=== PATIENT | female | born 1970 | race African-American/Black ===

== ENCOUNTER 2016-06-09 11:21 | Emergency (ER) ==
[2016-06-09 11:53] VITALS: BP 132/79
--- NOTE | 2016-06-09 12:58 | PROVIDER DOCUMENTATION ---
HPI-General Adult <Aline Kaufman - Last Filed: 06/09/16 13:04> - General Source: patient - History of Present Illness -Gen Adult Nature of Presenting Problems: Presents to er with cc of insect bite to right breast x 1 week that started draining yesterday. PT also complains of gout to entire LLE and bialteral hands. Denies n,v,f,recent injuries. Location of Pain/Injury: reports: other (right breast) Quality of Pain: reports: aching Severity: reports: moderate Onset/Duration: reports: 1 week ago Timing: reports: still present Context/Activities at Onset: reports: none Similar Symptoms Previously?: No Recently seen or treated by another doctor?: No <Kali Henderson - Last Filed: 06/09/16 13:39> - General Chief Complaint: Insect Bite/Sting Stated Complaint: GOUT/POSS ABSCESS Time Seen by Provider: 06/09/16 12:50 Allergies/Adverse Reactions: Patient Allergies Allergy/AdvReac Type Severity Reaction Status Date / Time No Known Allergies Allergy Verified 12/19/15 10:38 Home Medications: Home Medication List Medication Instructions Recorded Confirmed Last Taken Type Allopurinol [Zyloprim] 100 mg PO DAILY #0 tablet 10/30/15 12/19/15 12/12/15 11: 00 Rx Pantoprazole [Protonix] 40 mg PO DAILY@0700 #30 tablet 10/30/15 12/19/15 11:00 Rx Alprazolam [Xanax] 0.25 mg PO Q8H PRN PRN #30 tablet 11/01/15 12/19/15 12/12/15 11:00 Rx Venlafaxine E.r. [Effexor Xr] 75 mg PO QAM #30 capsule 11/01/15 12/19/15 12:30 Rx Amoxicillin 500 mg PO TID #30 capsule 12/19/15 Unknown Rx Ibuprofen 800 mg PO TID #30 tablet 12/19/15 Unknown Rx Metoprolol [Lopressor] 50 mg PO DAILY 12/19/15 12/19/15 12/18/15 12:30 History Cephalexin [Keflex] 500 mg PO BID #14 capsule 06/09/16 Unknown Rx Naproxen 375 mg PO BID #30 tablet 06/09/16 Unknown Rx Sulfamethoxazole/Trimethoprim 1 each PO BID #14 tablet 06/09/16 Unknown Rx [Bactrim Ds Tablet] Review of Systems - Adult - REVIEW OF SYSTEMS - ADULT Constitutional: denies: chills, fever, fatique Eyes: reports: no symptoms reported Ears, Nose, Mouth & Throat: reports: no symptoms reported Cardiovascular: denies: chest pain, irregular heart rate, orthopnea, syncope Respiratory: reports: no symptoms reported Gastrointestinal: denies: abdominal pain, diarrhea, nausea, vomiting Genitourinary: reports: no symptoms reported Musculoskeletal: reports: see HPI, other (gout). denies: frequent leg cramps, joint pain, joint swelling Integumentary: reports: skin sores/ulcer (right breast). denies: hives, hair loss, mole changes, nail changes Neurological: reports: no symptoms reported Psychiatric: reports: no symptoms reported Endocrine: reports: no symptoms reported Hematologic/Lymphatic: reports: no symptoms reported Allergic/Immunologic: reports: no symptoms reported All Other Systems: Reviewed and Negative <Kali Henderson - Last Filed: 06/09/16 13:39> Past History - Adult - PAST MEDICAL HISTORY-ADULT Review of Records: reports: Nursing Assessment Review, Medications Reviewed Respiratory: reports: asthma, COPD Gastrointestinal: reports: GERD Musculoskeletal: reports: other (gout) Psychiatric: reports: anxiety Other Conditions: reports: MRSA, other (fluid retention) - PRIOR SURGERIES/PROCEDURES Surgical/Procedure History: reports: BTL - IMMUNIZATION STATUS Childhood Immunizations: UTD Flu Vaccine: See Nurse Assessment - SOCIAL HISTORY Smoking: cigarettes, less than 1 pack/day Provider spent 3-5 mins advising pt. on dangers of tobacco.: Discussed manners to quit use, and f/u contacts for add'l counseling. <Aline Kaufman - Last Filed: 06/09/16 13:04> - PAST MEDICAL HISTORY-ADULT Review of Records: reports: Nursing Assessment Review, Medications Reviewed Major Childhood Illnesses: reports: denies history Cardiovascular: reports: HTN Musculoskeletal: reports: other (gout) - PRIOR SURGERIES/PROCEDURES Surgical/Procedure History: reports: BTL - IMMUNIZATION STATUS Childhood Immunizations: See Nurse Assessment Flu Vaccine: See Nurse Assessment - SOCIAL HISTORY Smoking: cigarettes, less than 1 pack/day Provider spent 3-5 mins advising pt. on dangers of tobacco.: Discussed manners to quit use, and f/u contacts for add'l counseling. Substance Use: none/never <Kali Henderson - Last Filed: 06/09/16 13:39> Physical Exam-General - PHYSICAL EXAM-ADULT Initial Vital Signs Reviewed: Yes - CONSTITUTIONAL General Appearance: appears well, alert, no apparent distress - EYES Eyes: PERRL/EOMI - HEAD, EARS, NOSE, MOUTH & THROAT HENMT: moist mucous membranes, normal ENT inspection, TMs normal, pharynx normal - NECK Neck: non-tender, full range of motion, supple, normal inspection - RESPIRATORY Respiratory: chest non-tender, lungs clear, normal breath sounds, no pleuratic chest pain, no respiratory distress, no accessory muscle use - CARDIOVASCULAR Cardiovascular: normal peripheral pulses, regular rate, rhythm, no edema, no gallop, no JVD - CHEST (BREASTS) Chest/Breast: other (right breast 3 cm draining abscess) - GASTROINTESTINAL (ABDOMEN) Abdominal Exam: normal bowel sounds, non tender, soft, no organomegaly, no pulsatile mass - MUSCULOSKELETAL Back Exam: normal inspection, no CVA tenderness, no vertebral tenderness Extremity: normal range of motion, non-tender, normal gait, normal inspection, no pedal edema, no calf tenderness, normal capillary refill, pelvis stable. negative: calf tenderness, deformity, erythema, inflammation, joint effusion, pulse deficit, pedal edema, swelling, tenderness - SKIN Integumentary: normal color, normal turgor, warm/dry - PSYCHIATRIC Psych/Mental Status: normal mood/affect, normal thought content, normal thought process, oriented x 3 <Kali Henderson - Last Filed: 06/09/16 13:39> Progress - PLAN OF CARE/RESULTS Progress/Plan/Lab Results: Orders Category Date Time Status Wound Care DIRECTED Care 06/09/16 13:08 Active ABSCESS CULTURE INC GRAM STAIN [RM] Stat Lab 06/09/16 13:08 Uncollected Ketorolac [Toradol] Med 06/09/16 13:07 Discontinued 60 mg IM NOW ONE Vital Signs - 24 hr 06/09/16 11:52 Temperature 98.3 F Pulse Rate 95 H Respiratory 20 Rate Blood Pressure 132/79 O2 Sat by Pulse 100 Oximetry <Kali Henderson - Last Filed: 06/09/16 13:39> Departure - Departure Time of Disposition Order: 13:04 Certified Medical Emergency: Emergent <Aline Kaufman - Last Filed: 06/09/16 13:04> <Kali Henderson - Last Filed: 06/09/16 13:39> - Departure DIAGNOSIS: Abscess Joint pain Qualifiers: Joint pain location: unspecified Qualified Code(s): M25.50 - Pain in unspecified joint Disposition: HOME 01 Condition: Stable Additional Instructions: Keep wound covered and clean. Take medications as directed. Ice or heat joints as needed for pain. ED Follow Up Instructions: You have been treated by a care provider in the Emergency Department. These instructions are being provided to you so you can have an understanding of how to care for yourself upon discharge. Upon discharge from the Emergency Department, you are responsible for making arrangements for follow-up care by a physician of your choice. Take all prescribed medications as directed. Return to the Emergency Department immediately for any new or worsening symptoms. You may call the Physician Referral phone number at [phone] to obtain a list of Physicians who are taking new patients. Prescriptions: Sulfamethoxazole/Trimethoprim [Bactrim Ds Tablet] 1 each PO BID #14 tablet Cephalexin [Keflex] 500 mg PO BID #14 capsule Naproxen 375 mg PO BID #30 tablet Referrals: [Primary Care Provider] - Instructions: Abscess, Joint Pain Attestation - Scribe Verification/Attestation Scribe:: Kali Henderson Acting as Scribe for:: Aline Kaufman Scribe documention review:: This chart was documented by a scribe and accurately reflects the service the provider performed and the decisions made by the provider. <Kali Henderson - Last Filed: 06/09/16 13:39> Physician Attestation
[2016-06-09] MEDS ORDERED: TORADOL IM ONE (13:07)
== END 2016-06-09 14:16 | disposition home or self-care (01) ==
LOC: ED 11:21
DX: N61.1 Abscess of the breast and nipple (principal); M25.50 Pain in unspecified joint; J44.9 Chronic obstructive pulmonary disease, unspecified; K21.9 Gastro-esophageal reflux disease without esophagitis; F41.9 Anxiety disorder, unspecified; I10 Essential (primary) hypertension; Z86.14 Personal history of Methicillin resistant Staphylococcus aureus infection; F17.210 Nicotine dependence, cigarettes, uncomplicated; Z71.6 Tobacco abuse counseling; Z79.899 Other long term (current) drug therapy
CPT/HCPCS: 87070; 87077; J1885

== ENCOUNTER 2016-09-12 10:10 | Inpatient (IN) ==
[2016-09-12] MEDS ORDERED: DILAUDID IV ONE ×2 (10:30→12:12)
[2016-09-12] MEDS ORDERED: NS 1,000 ML IV ONE (10:32)
[2016-09-12] MEDS ORDERED: ROCEPHIN 1 GM/NS 1 GM/50 ML IVPB IV ONE (10:35)
--- NOTE | 2016-09-12 12:55 | Diag Imaging Result Doc PS360 ---
EXAM: FACIAL BONES W/O CONTRAST HISTORY: recheck TECHNIQUE: COMPARISON: 09/10/2016 FINDINGS: There continues to be soft tissue swelling primarily in the right side of the face. This extends from the right orbit along the right side of the nose inferiorly adjacent to the mandible. This is most prominent at the base of the nose with an area measuring just under 2 cm. This is more pronounced than on the prior exam. No well-defined fluid collection. No sinus opacification and no air-fluid levels. I believe there are multiple small right maxilla and mandibular caries. IMPRESSION: Persistent right facial cellulitis focally more prominent at the base of the nose, but no well-defined fluid collection. Electronically signed by Tomas Hewitt 09/12/2016 12:53 PM
[2016-09-12 13:15] LABS: MANUAL DIFF NEEDED? NO
[2016-09-12 13:19] LABS: BASO% 0.5 % (0.0-0.8); EOS# 0.11 X1000 (0.0-0.7); EOS% 0.8 % (0.0-10.0); HEMATOCRIT 38.8 % (37.0-47.0); HEMOGLOBIN 12.8 g/dL (12.0-16.0); IMM GRAN# 0.05 X1000 (0.0-0.04); IMM GRAN% 0.4 % (0.0-0.5); LYMPH# 2.77 X1000 (1.2-3.4); LYMPH% 21.1 % (20.5-51.1); MCH 32.3 PG (27-31); MONO# 1.16 X1000 (0.11-0.59); MONO% 8.8 % (1.7-9.3); MPV 11.2 FL (7.4-10.4); NEUT% 68.4 % (42.2-75.2); PLT 300 X1000 (130-400); RBC 3.96 XMIL (4.2-5.4)
[2016-09-12 13:35] LABS: AGAP 13; ALBUMIN 4.1 g/dL (3.5-5.0); ALKALINE PHOSPHATASE 129 U/L (32-104); BUN 8 mg/dL (8-22); CALCIUM 9.2 mg/dL (8.8-10.2); CHLORIDE 97 mmol/L (98-107); COSMO 272; GOT 14 U/L (10-30); GPT 10 U/L (10-36); SODIUM 137 mmol/L (136-145); TCO2 27 mmol/L (25-35); TOTAL BILIRUBIN 0.65 mg/dL (0.20-1.00); TOTAL PROTEIN 8.4 g/dL (6.3-8.3)
--- NOTE | 2016-09-12 14:03 | PROVIDER DOCUMENTATION ---
This chart was entered by Sheridan Chilel Scribe, acting as scribe for Marcelle Zimmer MD. [facility]-EENT General - General Chief Complaint: Return/Recheck Stated Complaint: recheck Time Seen by Provider: 09/12/16 10:17 Source: patient Allergies/Adverse Reactions: Patient Allergies Allergy/AdvReac Type Severity Reaction Status Date / Time No Known Allergies Allergy Verified 09/12/16 10:51 Home Medications: Home Medication List Medication Instructions Recorded Confirmed Last Taken Type Allopurinol [Zyloprim] 100 mg PO DAILY #0 tablet 10/30/15 09/12/16 2 Weeks Ago Rx Pantoprazole [Protonix] 40 mg PO DAILY@0700 #30 tablet 10/30/15 09/12/16 2 Weeks Ago Rx Alprazolam [Xanax] 0.25 mg PO Q8H PRN PRN #30 tablet 11/01/15 09/12/16 3 Days Ago Rx Venlafaxine E.r. [Effexor Xr] 75 mg PO QAM #30 capsule 11/01/15 09/12/16 1 Month Ago Rx Metoprolol [Lopressor] 50 mg PO DAILY 12/19/15 09/12/16 1 Day Ago History Clindamycin [Cleocin] 450 mg PO TID #63 capsule 09/10/16 09/12/16 09/12/16 Rx Hydrocodone/APAP 5 mg/325 mg 1 each PO Q6H PRN PRN #10 tablet 09/10/16 09/12/16 1 Day Ago Rx [[place]-5] Lisinopril [Lisinopril] 20 mg PO QAM 09/12/16 09/12/16 09/12/16 History Loratadine [Loratadine] 10 mg PO 09/12/16 09/12/16 History - History of Present Illness-EENT General Nature of Presenting Problem: Pt is a 45 year old female who came to the ED with a cc of her swelling from her abscess is worsening. Pt reports she came to the ED the other day for swelling and tooth ache and was diagnosed with three abscesses. Pt reports today her swelling has gotten worse and has made her right eye close. Pt reports her face is hard and very tender. Pt reports she is taking the antibiotic like she is prescribed to. EENT Location: reports: eye (R), nose, mouth, facial Quality of Pain: reports: sharp, tightness Onset/Duration: reports: 2 days ago Timing: reports: still present Prearrival Treatment: Initiated prescription meds Associated Symptoms: reports: facial pain/swelling, tooth pain Similar Symptoms Previously?: Yes Recently seen or treated by another doctor?: Yes - Eyes Eye Problem Symptoms: reports: eyelid swelling Apparent Injury?: No - Ears Ear Problem Symptoms: reports: none - Nose Nose Problem Symptoms: nosebleed - Throat/Dental Throat/Dental Problem Symptoms: reports: toothache, swelling of jaw/face Throat/Dental Problem Context: reports: other (abscess) Recently seen a dentist or have an appointment?: No Review of Systems - Adult - REVIEW OF SYSTEMS - ADULT Constitutional: denies: chills, fever Eyes: reports: decreased vision, other (eye swollen shut). denies: discharge, double vision Ears, Nose, Mouth & Throat: reports: nose pain, mouth/dental pain, mouth swelling. denies: ear pain, throat pain Cardiovascular: denies: chest pain, syncope Respiratory: reports: no symptoms reported Gastrointestinal: denies: diarrhea, nausea, vomiting Genitourinary: reports: no symptoms reported Musculoskeletal: reports: no symptoms reported Integumentary: reports: no symptoms reported Neurological: reports: no symptoms reported Psychiatric: reports: no symptoms reported Endocrine: reports: no symptoms reported Hematologic/Lymphatic: reports: no symptoms reported Allergic/Immunologic: reports: no symptoms reported All Other Systems: Reviewed and Negative Past History - Adult - PAST MEDICAL HISTORY-ADULT Review of Records: reports: Nursing Assessment Review Major Childhood Illnesses: reports: denies history Cardiovascular: reports: HTN Respiratory: reports: asthma, COPD Gastrointestinal: reports: GERD Obstetrical/Gynecological: reports: denies history Genitourinary: reports: denies history Musculoskeletal: reports: other (gout) Neurological: reports: denies history Psychiatric: reports: anxiety Endocrine/Immune: reports: denies history Other Conditions: reports: MRSA, other (fluid retention) - PRIOR SURGERIES/PROCEDURES Surgical/Procedure History: reports: BTL - IMMUNIZATION STATUS Childhood Immunizations: See Nurse Assessment Flu Vaccine: See Nurse Assessment - FAMILY HISTORY Family History: reviewed, not pertinent Physical Exam- EENT - Physical Exam EENT Initial Vital Signs Reviewed: Yes General Appearance: alert, mild distress Eye Exam: right eye: eyelid inflammation, vision changes, 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 ) Ear Exam: bilateral ear: auricle normal Nasal Exam: sinus tenderness Throat Exam: maxillary swelling, other (1st and 2nd molar tender; 1st canine chipped and tender) Neck: non-tender Respiratory: chest non-tender, lungs clear Cardiovascular: tachycardia Abdominal Exam: normal bowel sounds, non tender Back Exam: normal inspection Extremity: normal range of motion, non-tender Integumentary: normal color Neurologic: grossly normal Psych/Mental Status: normal mood/affect, normal thought content, normal thought process, oriented x 3 Progress - PLAN OF CARE/RESULTS Progress/Plan/Lab Results: Vital Signs - 8 hr 09/12/16 10:13 09/12/16 12:34 Temperature 99.1 F Pulse Rate 113 H 98 H Respiratory Rate 22 22 Blood Pressure 171/96 150/91 O2 Sat by Pulse Oximetry 98 99 Bedside Urine ED: Urine Bedside Start: 09/12/16 11:53 Freq: Status: Active Activity Type Activity Date Activity User E-Sign Co-Sign Detail Recorded Client Recorded Date Recorded By Document 09/12/16 11:53 [id number] 09/12/16 11:55 [id number] 09/12/16 11:53 Point of Care [Bedside Point of Care] -Lot # [id number] - Results Negative -Control Line Visible? Yes -Additional Comment EXPIRES 2018 Laboratory Results - last 24 hr 09/12/16 09/12/16 09/12/16 10:36 10:36 10:36 WBC 13.12 H RBC 3.96 L Hgb 12.8 Hct 38.8 MCV 98.0 MCH 32.3 H MCHC 33.0 RDW Std Deviation 12.6 Plt Count 300 MPV 11.2 H Immature Gran % (Auto) 0.4 Neut % (Auto) 68.4 Lymph % (Auto) 21.1 [place] % (Auto) 8.8 Eos % (Auto) 0.8 Baso % (Auto) 0.5 Immature Gran # (Auto) 0.05 H Neut # (Auto) 8.97 H Lymph # (Auto) 2.77 [place] # (Auto) 1.16 H Eos # (Auto) 0.11 Baso # (Auto) 0.06 Sodium 137 Potassium 4.0 Chloride 97 L Carbon Dioxide 27 Anion Gap 13 BUN 8 Creatinine 0.7 Estimated GFR/1.73 m2 > 60 BUN/Creatinine Ratio 11 Glucose 98 Calculated Osmolality 272 Calcium 9.2 Total Bilirubin 0.65 AST 14 ALT 10 Alkaline Phosphatase 129 H Total Protein 8.4 H Albumin 4.1 Globulin 4.3 Albumin/Globulin Ratio 1.0 Plasma Lactate 0.8 Orders Category Date Time Status IV [Saline Loc] NOW Care 09/12/16 10:18 Active FACIAL BONES W/O CONTRAST [CT] Stat Exams 09/12/16 10:48 Completed BLOOD CULTURE [BLDCUL] Stat Lab 09/12/16 10:36 Results BLOOD CULTURE [BLDCUL] Stat Lab 09/12/16 10:36 Results CBC WITH DIFF [HEME] Stat Lab 09/12/16 10:36 Completed COMPREHENSIVE METABOLIC PANEL [CHEM] Stat Lab 09/12/16 10:36 Completed LACTATE, PLASMA [CHEM] Stat Lab 09/12/16 10:36 Completed 0.9% Sodium Chloride Inj [Ns] 1,000 ml Med 09/12/16 10:32 Discontinued IV 999 mls/hr CefTRIAXONE 1 GM/NS [Rocephin 1 gm/Ns] Med 09/12/16 10:35 Discontinued 1 gm in 50 ml IV NOW Hydromorphone [Dilaudid] Med 09/12/16 10:30 Discontinued 1 mg IV NOW ONE Hydromorphone [Dilaudid] Med 09/12/16 12:12 Discontinued 1 mg IV NOW ONE Result Diagrams: 09/12/16 10:36 09/12/16 10:36 - XRAY 1 XRAY Study: Facial Bones (presistent right facial cellulitis focally more prominent at the base of the nose, but no well defined fluid collection) - CT/MRI 1 CT Study: Facial Bones Impression: See EMR Report - CONSULTS/PCP/HOSPITALIST Notification #1 *Consult/PCP/Hospitalist*: Time Discussed: 14:01 Consult Disposition: Admit Departure - Departure Date of Disposition Decision: 09/12/16 Time of Disposition Decision: 14:01 DIAGNOSIS: Cellulitis and abscess of face, Dental abscess, Periorbital cellulitis of right eye Disposition: ADMITTED INPATIENT 09 Certified Medical Emergency: Emergent Condition: Fair Referrals and Follow-Ups: JUSTINA HUGO [Primary Care Provider] - - Critical Care Note This patient required my direct & personal management of CC.: No Comments: pt presented with worsening of right facial cellulitis was seen here 2 days ago , not able to tolerate PO, given rocephen IV and 2 rounds of dilaudid, needs IV ABX will admit for further evalaution This chart was documented by the indicated scribe, (Sheridan Chilel, Hari) and accurately reflects the services I performed and decisions made by me, Marcelle Zimmer MD, as attested by the provider's signature.
[2016-09-12] MEDS ORDERED: ZOSYN 3.375 GM/NS 3.375 GM/50 ML IVPB IV SCH (14:15)
[2016-09-12] MEDS ORDERED: VANCOMYCIN IV PER PHARMACY MISC SCH (14:15)
[2016-09-12] MEDS ORDERED: ZOFRAN IV PRN (15:41)
--- NOTE | 2016-09-12 16:06 | Diag Imaging Result Doc PS360 ---
EXAM: CHEST-2 VIEWS HISTORY: leukocytosis; sob TECHNIQUE: COMPARISON: 10/26/2015 FINDINGS: The lungs are well expanded. The heart is mildly prominent. The vessels are not distended. There are no infiltrates. No pleural effusions. IMPRESSION: Mildly prominent heart, otherwise negative exam. Electronically signed by Tomas Hewitt 09/12/2016 4:03 PM
--- NOTE | 2016-09-12 16:25 | HISTORY AND PHYSICAL ---
PRIMARY CARE PROVIDER: Rocio Aguirre. CHIEF COMPLAINT: Right facial pain and swelling. HISTORY OF PRESENT ILLNESS: Ramandeep Elam is a 45-year-old, female with a medical history of frequent abscesses, who in the past has been positive for MRSA, frequent I and D's of these abscesses. She states she drains her own abscesses at home, and points out one under her left arm, one under her right arm, in her bilateral groin areas. She does not have anyone she goes to, to drain them for her. She apparently came 2 days ago for right swelling and pain which she states has been going on for about 1 week. She presented to the ER here, had a CAT scan performed of the sinuses on 09/10/2016 which showed superficial soft tissue cellulitis of the right cheek extending to the periorbital area presumably from dental origin, right maxillary tooth abscesses. She was sent home on clindamycin, which the patient states she took as ordered. But the swelling and the pain and hardness of the abscesses on her face became much worse, and she has presented once more. Her white count went from 9 two days ago to now is 13,000. She is with low grade fever of 99 degrees. Her right eye is now swollen near shut. Her right naris is near complete closed due to swelling. When assessing her oral pharyngeal area there is no obvious open wound. We will admit and consult Dr. Davis for further recommendations. We will start her on broad-spectrum antibiotics and follow up on blood cultures. There is no obvious open wound to obtain a culture from. PAST MEDICAL HISTORY: 1. 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 There is a reported history of deep venous thromboses, but she states that she has never had clots. There is reported seizure disorder, which she also denies. 2. Suicidal ideations, but none now, last was October 2015. 3. Migraine headaches. 4. Fluid retention. 5. Asthma was COPD. 6. GERD. 7. Morbid obesity. 8. Hypertension. 9. Gout of the left middle finger and left foot. 10. History of MRSA in her abscesses in the past. SURGICAL HISTORY: Bilateral tubal ligation. Multiple incisions and drainage of her breasts, her left hand, her left elbow, her right gluteus quincy. SOCIAL HISTORY: She smokes 1-2 cigarettes per day since the age of 7. She drinks liquor about 1- 2 days per week all day. She smokes marijuana 2-3 times per month, and she smokes crack cocaine rarely. FAMILY HISTORY: Positive for gout. REVIEW OF SYSTEMS: Fourteen point review of systems were complete and all were negative except for those mentioned in above HPI. She says it is difficult to breathe out of her right naris and her vision is very blurred on the right secondary to the swelling. ALLERGIES: No known drug allergies. HOME MEDICATIONS: Allopurinol 100 mg p.o. daily. Xanax 0.25 mg p.o. every 8 hours p.r.n. Clindamycin 450 p.o. t.i.d. [place] 5 one tab p.o. every 6 hours p.r.n. Lisinopril 20 mg p.o. every a.m. Loratadine 10 mg p.o. as needed. Metoprolol 50 mg p.o. daily. Protonix 40 mg p.o. daily. Effexor 75 mg p.o. daily. PHYSICAL EXAMINATION: VITALS SIGNS: Temperature is 99.1 degrees, heart rate 98, respiratory rate 22, blood pressure 170/91, O2 saturation 99% on room air. 5 feet 0 inch tall, 216 pounds. BMI is 42.5. GENERAL: Ms. Ramandeep Elam is a 45-year-old, female. She is in no acute distress. She is able to answer questions appropriately. HEENT: Very swollen along the periorbital on the right down through her nose, right facial maxillary very hard, warm, and tender. Oropharynx is moist. Several dental caries noted on the right lower back teeth with a tooth missing but no open wound. Pupils equal and reactive. Difficult to assess extraocular movements secondary to severe swelling in the right eye and blindness in the left. NECK: No JVD or carotid bruits. CARDIOVASCULAR: S1, S2. Regular rate and rhythm. No rubs, gallops, murmurs. PULMONARY: Clear to auscultation. Bilateral breath sounds. No accessory muscle use or work of breathing noted. GASTROINTESTINAL: Soft, nontender, nondistended. Positive bowel sounds x4. Obese. EXTREMITIES: No edema noted. +2 dorsalis and radial pulses. SKIN: Warm, dry, intact except for there are several scarrings secondary to multiple areas of cysts or abscesses she has had in the past. She did point out new abscesses under both arms and in both groins, one along the left breast that appears to be healing. NEUROLOGIC: A and O x4. Moves all extremities equally. LABORATORY DATA: White blood cells 13,000, hemoglobin 12, hematocrit 38, platelet count 300,000. Sodium 137, potassium 4.0, BUN 8, creatinine 0.7, glucose 98, calcium 9.2, bilirubin 0.65, AST, 14 ALT 10. IMAGING: The sinuses CT on 09/10/2016 reveals superficial soft tissue cellulitis of the right cheek extending to the periorbital area presumably from dental origin, and right maxillary tooth abscesses. Facial bone CT from today, 09/12/2016, shows persistent right facial cellulitis focally more prominent at the base of the nose but no well-defined fluid collection. There is also visualized multiple small right maxilla and mandibular caries, and it is more pronounced than the prior exam. ASSESSMENT AND PLAN: 1. Periorbital maxillary right-sided cellulitis. No fluid filled areas. It is significantly swollen around the periorbital area causing her to not be able to see very well or open her eye. And the right naris is essentially closed. We will start with vancomycin and Zosyn. We will consult Dr. Davis who has seen her in the past for multiple abscesses that were methicillin-resistant Staphylococcus aureus positive. There are no obvious areas of open wounds to be able to culture on the external face or in the oral pharyngeal area. There are multiple dental caries noted. We will follow up with blood cultures. 2. Hypertension. Continue home medications. 3. Gastroesophageal reflux disease. Continue with proton pump inhibitor. 4. Gout. Continue allopurinol. 5. Asthma, chronic obstructive pulmonary disease, no exacerbation noted. 6. Multiple epidermal cysts with history of abscesses that were methicillin-resistant Staphylococcus aureus positive. 7. Suicidal ideation history. No ideations at this time. 8. Severe depression. Continue to monitor. 9. Morbid obesity. Body mass index is 42.2. 10. Visual deficit secondary to left eye clinically blind, only seeing shadows, and right eye is essentially closed secondary to swelling. 11. Tobacco abuse. Cessation discussed. 12. Alcohol abuse. Cessation discussed. 13. Marijuana, crack cocaine history use. Cessation discussed. Dictated by MADELINE Lofton for Geo James MD cc: MADELINE Lofton MD Johnna Langford, CRNP
[2016-09-12] MEDS: NORCO-7.5 PO PRN ×2 (17:08→21:53)
[2016-09-12] MEDS: VANCOMYCIN 2,000 MG in NS 500 ML IV SCH (17:08)
[2016-09-12] MEDS: NS 1,000 ML IV SCH (17:08)
--- NOTE | 2016-09-12 17:50 | CONSULTATION ---
DATE OF CONSULTATION: 09/12/2016 CONCLUSION: Patient is admitted to the hospital with a severe right facial cellulitis. She has had cellulitis in the past and also abscesses from which methicillin-resistant Staph aureus was recovered and on 1 occasion Streptococcus was recovered. It is noted on the CT scan the patient has multiple caries in the right maxilla and mandible. It is possible that the facial cellulitis is due to infection originating in these teeth. RECOMMENDATIONS: I agree with treating with vancomycin I have substituted cefepime for Zosyn. I told the patient that she should shower instead of taking a bath and she should use a bactericidal soap such as Dial but not a soap that had cream in it like Dove which is what she uses now. DISCUSSION: The patient in the past week has had mouth soreness and swelling of the right side of the face. She has decreased vision from her right eye because of swelling. She is legally blind in her left eye and this is been present for a prolonged period of time. She states is difficult for her to breathe because her nose feels swollen but she can breathe through her mouth without difficulty. The patient also is having some nausea but has not vomited. She says that her mouth feels sore also. PAST MEDICAL HISTORY/REVIEW OF SYSTEMS: She denies any trouble hearing. She is blind in her left eye and since the swelling on her face started she has had decreased vision in her right eye.Neck: No meningismus. Lungs: The patient is having difficulty breathing she says because her nose feels swollen and she breathes through her nose but it does not seem that it is a problem with her lungs. She is not coughing. Cardiovascular: No chest pain or palpitations. GI: Patient has had some nausea but no vomiting and no diarrhea. Endocrine: She denies having diabetes or thyroid disease. Bones, joints, muscles: Patient states she has gout and sometimes she has pain in her feet from it. Hematologic: No history of anemia or bleeding tendency. Skin: No rashes. The remainder of the patient's review of systems was completed and was negative. [employer] HISTORY: She is a 4, para 4, AB 0. She has had a tubal ligation. PREVIOUS HOSPITALIZATIONS AND OPERATION: She has had labor and deliveries, tubal ligation, recurrent abscesses which as mentioned above methicillin-resistant Staph aureus and group A strep have been recovered from them. The patient states she has had a "light" heart attack. She has COPD. She has been hospitalized for COPD. MEDICAL DISEASES: Positive for obesity, COPD, myocardial infarction, hypertension and gout. Gastroesophageal reflux disease. INFECTIOUS DISEASE HISTORY: For recurrent abscesses as mentioned above. No pneumonia or UTI. FAMILY HISTORY: Positive for diabetes mellitus, stroke, cancer and myocardial infarction. SOCIAL HISTORY: [place] She is . She does not have any pets. She smokes cigarettes and drinks alcoholic beverages. She smokes marijuana but no other drug. She lives alone. She is disabled because of COPD and gout. Patient's chart lists no known an under. ALLERGIES: The patient's chart lists no known drug allergies. HOME MEDICATIONS: Include lisinopril, clindamycin, Xanax, Zyloprim, Effexor, Protonix, Lopressor, hydrocodone and loratadine. PHYSICAL EXAMINATION: Vital Signs: Temperature is 98.7 degrees, pulse 93, respirations 17, blood pressure 200/97. Patient's weight is listed as 216 pounds. Generally: This is middle-aged female. She seems to be having a lot of pain in her face because of the cellulitis. Head, eyes, ears, nose and throat: The right side of her face is swollen. The right eye is almost swollen shut. She is blind in the left eye and can barely see out of the right eye it now because of the swelling. She can hear my spoken words. There is no drainage from the nose or ears. I could not get a good look in the patient's mouth. Neck: No meningismus. Thorax: Increased AP diameter of the chest. Lungs: Clear to auscultation. Cardiovascular: Heart rate is regular. She has bilateral leg edema. It is difficult for me to feel for pulses because of her edema in the legs. Abdomen: Soft and nontender. Neurologic: Patient is awake. She can move her extremities. There is no tremor. Her sensation is intact to touch. Her memory as regarding her medical history is slightly reduced. Thank you for the consult. cc: Erik Davis MD
[2016-09-12 19:10] LABS: URINE CULTURE NEEDED? NO; URINE MICRO REVIEW NEEDED? NO; URINE SOURCE CLEAN CATCH
[2016-09-12 19:13] LABS: BILIRUBIN URINE NEGATIVE (NEGATIVE); BLOOD URINE SMALL (NEGATIVE); COLOR YELLOW; GLUCOSE URINE NEGATIVE (NEGATIVE); LEUKOCYTES URINE NEGATIVE (NEGATIVE); NITRITE URINE NEGATIVE (NEGATIVE); PH URINE 6.5; PROTEIN URINE TRACE mg/dL (NEGATIVE); TURBIDITY URINE CLEAR (CLEAR); UR EPITHELIAL CELLS <10 /HPF (<10); URINE BACTERIA NEGATIVE /HPF; URINE RBC <10 /HPF (<10); URINE WBC <10 /HPF (<10); UROBILINOGEN URINE 3 mg/dL (NORMAL)
[2016-09-12] MEDS: NICODERM PATCH TD ONE (20:18)
[2016-09-12] MEDS: TYLENOL PO PRN (20:18)
[2016-09-12] MEDS: XANAX PO PRN (20:25)
[2016-09-12] MEDS: MAXIPIME 2 GM/NS 2 GM/100 ML IVPB IV SCH (21:04)
[2016-09-13] MEDS: NORCO-7.5 PO PRN ×3 (02:17→12:06)
[2016-09-13 06:09] LABS: MANUAL DIFF NEEDED? NO
[2016-09-13 06:15] LABS: BASO% 0.2 % (0.0-0.8); EOS# 0.12 X1000 (0.0-0.7); HEMOGLOBIN 11.9 g/dL (12.0-16.0); IMM GRAN# 0.06 X1000 (0.0-0.04); IMM GRAN% 0.5 % (0.0-0.5); LYMPH# 2.63 X1000 (1.2-3.4); LYMPH% 21.8 % (20.5-51.1); MCH 32.1 PG (27-31); MCHC 32.2 g/dL (33-37); MCV 99.7 FL (81-99); MONO# 0.98 X1000 (0.11-0.59); MONO% 8.1 % (1.7-9.3); MPV 10.4 FL (7.4-10.4); NEUT% 68.4 % (42.2-75.2); PLT 295 X1000 (130-400); RBC 3.71 XMIL (4.2-5.4)
[2016-09-13 06:25] LABS: INR 1.04; PTT 28.6 Seconds (22.0-36.0)
[2016-09-13 06:43] LABS: AGAP 10; ALBUMIN 3.5 g/dL (3.5-5.0); ALKALINE PHOSPHATASE 109 U/L (32-104); BUN 7 mg/dL (8-22); CHLORIDE 101 mmol/L (98-107); COSMO 277; GOT 11 U/L (10-30); GPT 8 U/L (10-36); MAGNESIUM 1.7 mg/dL (1.5-2.7); POTASSIUM 4.7 mmol/L (3.5-5.1); SODIUM 139 mmol/L (136-145); TCO2 28 mmol/L (25-35); TOTAL PROTEIN 7.3 g/dL (6.3-8.3)
[2016-09-13] MEDS: TYLENOL PO PRN (07:01)
[2016-09-13] MEDS: XANAX PO PRN (07:03)
[2016-09-13] MEDS: LOPRESSOR PO SCH (09:54)
[2016-09-13] MEDS: MAXIPIME 2 GM/NS 2 GM/100 ML IVPB IV SCH ×2 (09:54→22:28)
[2016-09-13] MEDS: PRINIVIL PO SCH (09:54)
[2016-09-13] MEDS: ZYLOPRIM PO SCH (09:55)
[2016-09-13] MEDS: NICODERM PATCH TD SCH (09:55)
[2016-09-13] MEDS: PRILOSEC PO SCH (09:55)
[2016-09-13] MEDS: DILAUDID IV PRN ×3 (12:42→22:27)
[2016-09-13] MEDS: TORADOL IV SCH ×2 (13:30→19:03)
[2016-09-13] MEDS: OXY IR PO SCH ×2 (13:30→18:08)
[2016-09-13] MEDS: NS 1,000 ML IV SCH (13:32)
[2016-09-13] MEDS: VANCOMYCIN 2,000 MG in NS 500 ML IV SCH (16:01)
--- NOTE | 2016-09-13 16:44 | PROGRESS NOTE ---
DATE: 09/13/2016 SUBJECTIVE: Patient is complaining of severe pain in the right side of face because of the cellulitis. No fever or chills reported. OBJECTIVE: Vital Signs: Temperature 98.6 degrees, heart rate 80, respiratory rate 18, blood pressure 151/85. O2 saturation 94% on room air. General: This is a 45-year-old female, looking older than her age, lying in bed, in no acute distress. HEENT: Head is normocephalic, atraumatic. Anicteric sclerae and pale conjunctivae. Mucous membranes moist. There is also a bit of swelling area along the periorbital on the right down throughout her nose with right facial maxillary area very hard, tender and warm. A few dental caries noted on the right lower back teeth with tooth missing, but no open wound. Pupils equal, round, reactive to light and accommodation. Neck: Supple. No JVD. No carotid bruits. No lymphadenopathy. No thyromegaly. Cardiovascular: S1 and S2 heard. No murmurs, gallops, or rubs. Regular rate and rhythm. Respiratory: Clear bilaterally to auscultation. No work of breathing or using accessory muscles. Abdomen: Soft. Nontender to palpation. Bowel sounds present. No organomegaly. Nontraumatic. Extremities: No clubbing, cyanosis, or edema. Peripheral pulses present in both legs. Neurological: Patient alert and oriented x3. Moves 4 extremities. Cranial nerves 2-12 grossly normal. LABORATORY DATA: Reviewed. ASSESSMENT AND PLAN: 1. Right-sided cellulitis. Patient is on vancomycin and Zosyn. Dr. Davis is following this patient. We will follow his recommendations. White cell count is not too high and no fever reported. 2. Hypertension. Blood pressure is under control. We will continue with the same management. 3. Gastroesophageal reflux disease. We will continue with Protonix. 4. Gout, not on any gouty attack. We will continue with allopurinol. 5. Asthma. Patient is not having any attack. We will continue with breathing treatments as needed. 6. Severe depression. We will continue with home medications. 7. Morbid obesity noted. 8. Visual deficit secondary to left eye clinically blind. Right eye is essentially closed secondary to swelling, unchanged in comparing with yesterday. 9. Alcohol abuse. Cessation discussed. 10. Tobacco abuse. Cessation discussed. 11. History of consuming marijuana and crack cocaine. Cessation discussed. cc: Geo James MD
[2016-09-14] MEDS: TORADOL IV SCH ×5 (00:34→17:42)
[2016-09-14] MEDS: OFIRMEV 1000 MG/ISOTONIC SOLN 1,000 MG/100 ML BOTTLE IV SCH ×4 (00:34→17:42)
[2016-09-14] MEDS: DILAUDID IV PRN ×5 (01:47→21:20)
[2016-09-14] MEDS: MAXIPIME 2 GM/NS 2 GM/100 ML IVPB IV SCH ×2 (09:00→21:54)
[2016-09-14 09:09] LABS: MANUAL DIFF NEEDED? NO
[2016-09-14 09:12] LABS: BASO% 0.2 % (0.0-0.8); EOS# 0.15 X1000 (0.0-0.7); EOS% 1.1 % (0.0-10.0); HEMATOCRIT 34.4 % (37.0-47.0); IMM GRAN# 0.04 X1000 (0.0-0.04); IMM GRAN% 0.3 % (0.0-0.5); LYMPH# 2.32 X1000 (1.2-3.4); LYMPH% 17.4 % (20.5-51.1); MCH 31.6 PG (27-31); MCV 98.9 FL (81-99); MONO# 1.51 X1000 (0.11-0.59); MONO% 11.4 % (1.7-9.3); MPV 10.2 FL (7.4-10.4); NEUT% 69.6 % (42.2-75.2); PLT 280 X1000 (130-400); RBC 3.48 XMIL (4.2-5.4)
[2016-09-14 09:29] LABS: AGAP 12; BUN 8 mg/dL (8-22); CALCIUM 8.6 mg/dL (8.8-10.2); CHLORIDE 100 mmol/L (98-107); COSMO 272; POTASSIUM 4.1 mmol/L (3.5-5.1); SODIUM 137 mmol/L (136-145); TCO2 25 mmol/L (25-35)
[2016-09-14] MEDS: NICODERM PATCH TD SCH (09:31)
[2016-09-14] MEDS: LOPRESSOR PO SCH (09:31)
[2016-09-14] MEDS: OXY IR PO SCH ×3 (09:31→16:23)
[2016-09-14] MEDS: XANAX PO PRN ×2 (09:31→16:24)
[2016-09-14] MEDS: PRINIVIL PO SCH (09:31)
[2016-09-14] MEDS: ZYLOPRIM PO SCH (09:31)
[2016-09-14] MEDS: PRILOSEC PO SCH (09:31)
--- NOTE | 2016-09-14 09:43 | ECHO REPORT ---
ORDER DATE: 09/12/2016 ECHOCARDIOGRAPHIC MEASUREMENTS: 1. Interventricular septum 1.3, left ventricular posterior wall 1, diastolic diameter 3.7, left atrium 3.4, aorta 3.1. 2. Aortic valve leaflets were trileaflet. Pulmonic valve was normal. Tricuspid valve was normal. There was trace pulmonary regurgitation. Mitral valve was normal. 3. Normal left ventricular cavity size. Estimated ejection fraction of 60%. 4. There is mild tricuspid regurgitation. Peak velocity across the tricuspid valve was 3 m/sec. Pulmonary artery systolic pressure of 46 mmHg. Peak velocity across the aortic valve less than 2 m/sec. There is no aortic stenosis. There is mild aortic regurgitation. There is mild tricuspid regurgitation. 5. There is no pericardial effusion or obvious intracardiac mass or thrombus seen. cc: MD Vida Honeycutt CRNP
--- NOTE | 2016-09-14 10:41 | PROGRESS NOTE ---
DATE: 09/14/2016 SUBJECTIVE: Patient is still complaining of moderate pain in the right side of the face and it seems that the swelling is a little bit worse today. No fevers or chills reported. OBJECTIVE: Vital Signs: Temperature 98.6 degrees, heart rate 82, respiratory 20, blood pressure 129/72, O2 saturation 98% on room air. General Examination: This is a 45-year-old female, looking older than her age, lying in bed, in no acute distress. HEENT: Normocephalic. Anicteric sclerae. Pale conjunctivae. There is a bit of swollen area along the periorbital on the right, down through her nose that is a little bit more inflamed in comparing with yesterday. Also this right facial maxillary area is very hard, tender, and warm to palpation. A few dental caries noted in the right lower back teeth with tooth missing but there is no open wound. Pupils equal, round, and reactive to light and accommodation. The right eye is closed. Neck: Supple. No JVD noted. No carotid bruits. No lymphadenopathy. No thyromegaly. Cardiovascular: S1, S2 heard. No murmurs, gallops, or rubs. Regular rate and rhythm. Respiratory: Clear bilaterally to auscultation. No work of breathing or using accessory muscles. Abdomen: Soft. Nontender to palpation. Bowel sounds present. No organomegaly. Extremities: No clubbing, cyanosis, or edema. Peripheral pulses present in both legs. Neurological: Patient is alert and oriented x3. Moves 4 extremities. Cranial nerves 2 through 12 grossly. LABORATORY DATA: White cell count 13.3, hemoglobin 11.6, hematocrit 34.4, platelets 280,000. BMP unremarkable. ASSESSMENT AND PLAN: 1. Right facial cellulitis. Patient is on vancomycin and Zosyn. Dr. Davis has been consulted. Will follow his recommendations. This cellulitis is getting a little worse with more swelling and pain, so at this time we prefer to order a CT of the nasal bones to have better visualization of that infected area. Will see what it shows. 2. Hypertension. Blood pressure is under control. Continue with the same management. 3. Gastroesophageal reflux disease. Patient will continue with Protonix. 4. Gout, stable. Patient is not experiencing any gouty attack. We will continue with allopurinol. 5. Asthma. Patient is not having any attack. Will continue with nebulizations p.r.n. 6. Severe depression. Will continue home medications. 7. Morbidly obesity, noted. 8. Visual deficits secondary to left eye clinically blind and right eye is essentially closed secondary to swelling, which is unchanged in comparing with yesterday. 9. Alcohol abuse. Cessation discussed. 10. Tobacco abuse. Cessation discussed. 11. History of consuming marijuana and crack cocaine. Cessation discussed. cc: Geo James MD
--- NOTE | 2016-09-14 12:38 | Diag Imaging Result Doc PS360 ---
EXAM: FACIAL BONES W WO CONTRAST INDICATION: worsening facial cellulitis COMPARISON: 09/12/2016 FINDINGS: Similar to the previous study, there is extensive soft tissue edema at the right side of the face consistent with cellulitis. With the addition of IV contrast, there is now a clear loculated fluid collection with surrounding enhancement consistent with an abscess at the base of the nose on the right. It measures up to 2.7 x 1.7 cm axially and up to 3.1 cm craniocaudally on the coronal reconstructions. It is probably stable to marginally worse than the previous study. However, it is difficult to compare given the lack of IV contrast on the previous study. The right periorbital edema appears to have worsened somewhat. There is no evidence of postseptal cellulitis. Similar to the previous study, there is reactive submandibular lymphadenopathy on the right. Otherwise, the facial bones are essentially unchanged. IMPRESSION: Right facial cellulitis appears to have worsened somewhat during the interval, now with a clear abscess at the base of the nose on the right. Electronically signed by Tylor Dillard 09/14/2016 12:36 PM
--- NOTE | 2016-09-14 14:37 | PROGRESS NOTE ---
DATE: 09/14/2016 PRESENT ILLNESS: The patient has severe facial cellulitis and the CT scan just ordered by shows that she has an abscess also. MEDICATIONS: The patient is on a combination of vancomycin and cefepime. PHYSICAL EXAMINATION: Vital Signs: Temperature is 98.6 degrees, pulse 82, respirations 20, blood pressure 149/72. General: This is an ill-appearing, middle-aged female. Head, eyes, ears, nose, and throat: The patient has formed an area on the right side of the face that is very tender and it has small little areas where pus is coming out. Lungs: Clear to auscultation. Cardiovascular: Regular heart rate. Abdomen: Soft and nontender. LAB AND X-RAY: As mentioned above, a CT scan today shows that the patient has an abscess in the right side of the face. Her CBC shows a white count of 13,300, hemoglobin 11, and platelet count 280,000. Creatinine 0.7. GFR is greater than 60. Blood cultures are sterile. ASSESSMENT AND PLAN: The patient has both cellulitis and an abscess of the face. Our plan is to continue with the antibiotics and a consult for Dr. Licea to see the patient has been placed. The patient's comorbidities, she has many caries in her mouth and possibly the facial infection formed from an infection in 1 of her teeth. cc: Erik Davis MD
[2016-09-14] MEDS: VANCOMYCIN 2,000 MG in NS 500 ML IV SCH (15:02)
[2016-09-14] MEDS ORDERED: DILAUDID IV ONE (22:57)
[2016-09-15] MEDS: XANAX PO PRN (00:36)
[2016-09-15] MEDS: OFIRMEV 1000 MG/ISOTONIC SOLN 1,000 MG/100 ML BOTTLE IV SCH ×4 (00:36→19:32)
[2016-09-15] MEDS: TORADOL IV SCH ×4 (00:36→20:23)
--- NOTE | 2016-09-15 01:22 | CONSULTATION ---
DATE OF CONSULTATION: 09/14/2016 REASON FOR CONSULTATION: Right face abscess. HISTORY OF PRESENT ILLNESS: This is a 45-year-old female, who for the last week has had increasing right-sided facial pain and swelling. She has her right eye almost completely swollen shut. There have been no relieving factors. She had previously been on clindamycin at home. Workup previously on 09/10/2016 from the emergency room included a CT of the sinuses, which showed soft tissue cellulitis of the right cheek, extending into the periorbital area, presumably from a dental origin, and a right maxillary tooth abscess. However, her symptoms have worsened, and she re-presented to the hospital [address] scan today again shows right facial cellulitis and a definite abscess at the base of the nose on the right, but without evidence of postseptal cellulitis. PAST MEDICAL HISTORY: Multiple abscesses, with a history of MRSA, and previous incision and drainage procedures. She also performs her own drainage procedures at home. History of suicidal ideation, asthma, COPD, migraine headaches, GERD, morbid obesity, hypertension, and gout. PAST SURGICAL HISTORY: Bilateral tubal ligation. Incision and drainage of abscesses of the breast, as well as left hand and left elbow and right gluteus quincy. SOCIAL HISTORY: She does smoke a few cigarettes per day. She drinks liquor several days a week. She smokes marijuana occasionally, and also smokes crack cocaine rarely. FAMILY HISTORY: Positive for gout. ALLERGIES: No known drug allergies. HOME MEDICATIONS: Zyloprim, Protonix, Effexor, Xanax, Lopressor, clindamycin, hydrocodone, lisinopril, loratadine. REVIEW OF SYSTEMS: Positive for blurry vision and right eye pain, as well as right facial pain. Otherwise, 10 systems reviewed and negative, except as noted above. PHYSICAL EXAMINATION: Vital Signs: Temperature 99 degrees, pulse 79, respirations 24, blood pressure 164/79. General: She is a well-developed female, in no acute distress. HEENT: Normocephalic, atraumatic. Extraocular muscles intact. Her left pupil is equal and round. Her right pupil is really unable to be evaluated, secondary to periorbital edema and mucous discharge covering that eye. The right face adjacent to the naris is very swollen and tense, with several open draining sinuses with purulent drainage. It is very tender. Neck: Supple. No thyromegaly or significant lymphadenopathy. Cardiovascular: Regular rate and rhythm. Respiratory: No work of breathing. Extremities: No clubbing, cyanosis, or edema. LABORATORY STUDIES: White blood cell count 13,000, hemoglobin 11, hematocrit 34, platelet count 280,000. Electrolytes reviewed and unremarkable. IMAGING STUDIES: As described above in HPI. ASSESSMENT AND PLAN: A 45-year-old female with large right facial abscess. I think she would tolerate a drainage procedure in the operating room much better than at the bedside. We can thoroughly clean it out and wash her eye out better. We will plan this tomorrow. I have discussed the risks and benefits with her, including bleeding, ongoing infection, and possibly further procedures and other imponderables. She understands and agrees to proceed. cc: Yonathan Licea MD
[2016-09-15] MEDS: DILAUDID IV PRN ×4 (03:46→20:38)
[2016-09-15 06:28] LABS: MANUAL DIFF NEEDED? NO
[2016-09-15 06:37] LABS: BASO% 0.3 % (0.0-0.8); EOS# 0.11 X1000 (0.0-0.7); EOS% 1.1 % (0.0-10.0); HEMATOCRIT 34.1 % (37.0-47.0); HEMOGLOBIN 10.8 g/dL (12.0-16.0); IMM GRAN# 0.05 X1000 (0.0-0.04); IMM GRAN% 0.5 % (0.0-0.5); LYMPH# 2.64 X1000 (1.2-3.4); MCH 31.5 PG (27-31); MCHC 31.7 g/dL (33-37); MCV 99.4 FL (81-99); MONO# 1.15 X1000 (0.11-0.59); MONO% 11.3 % (1.7-9.3); MPV 10.9 FL (7.4-10.4); NEUT% 60.8 % (42.2-75.2); PLT 301 X1000 (130-400); RBC 3.43 XMIL (4.2-5.4)
[2016-09-15 06:56] LABS: AGAP 11; BUN 7 mg/dL (8-22); CALCIUM 8.6 mg/dL (8.8-10.2); CHLORIDE 100 mmol/L (98-107); COSMO 273; POTASSIUM 4.4 mmol/L (3.5-5.1); SODIUM 138 mmol/L (136-145); TCO2 27 mmol/L (25-35)
[2016-09-15] MEDS: NICODERM PATCH TD SCH (08:13)
[2016-09-15] MEDS: MAXIPIME 2 GM/NS 2 GM/100 ML IVPB IV SCH ×3 (08:13→23:00)
--- NOTE | 2016-09-15 08:45 | PROGRESS NOTE ---
DATE: 09/15/2016 PRESENT ILLNESS: The patient has facial cellulitis with abscess formation. She currently is draining pus from her cheek. The patient's CT scan showed that the patient does have a right- sided facial abscess in the area where the patient's wound is, that is draining pus. MEDICATIONS: Patient is on a combination of vancomycin and cefepime. This is day 3 for both of these. PHYSICAL EXAMINATION: Vital Signs: Temperature is 98.4 degrees, pulse 78, respirations 16, blood pressure 140/75. General: This is an ill-appearing, middle-aged female. She is in no acute distress. Head, Eyes, Ears, Nose, and Throat: She can hear my spoken words. Her vision is getting better in her right eye. She states that there has been a lot of pus draining from the wound on her cheek. Lungs: Clear to auscultation. Cardiovascular: Regular heart rate. Abdomen: Soft and nontender. Ears, Nose, and Throat: The patient's facial mass is draining purulent fluid. LAB AND X-RAY: See dictated addendum. ASSESSMENT AND PLAN: Patient has cellulitis and abscess of the face. The plan is to continue her on antibiotics and also Dr. Licea plans to take the patient to surgery this afternoon to drain the abscess as seen on CAT scan. The patient does have cellulitis and abscess of the right cheek. The plan is to treat her with antibiotics that she has already been on, namely vancomycin and cefepime. Today, surgery is to be performed by the ENT physician. I will plan to see the patient. The patient's comorbidities are that the patient has many caries and this may be the source of her facial infection. cc: Erik Davis MD [facility]
[2016-09-15] MEDS: OXY IR PO SCH ×3 (09:51→19:30)
[2016-09-15] MEDS: PRILOSEC PO SCH (09:52)
[2016-09-15] MEDS: ZYLOPRIM PO SCH (09:53)
[2016-09-15] MEDS: PRINIVIL PO SCH (09:53)
[2016-09-15] MEDS: LOPRESSOR PO SCH (10:00)
--- NOTE | 2016-09-15 10:47 | PROGRESS NOTE ---
DATE: 09/15/2016 ADDENDUM: LAB AND X-RAY STUDIES: CBC today showed a white count of 10,150, hemoglobin 10.8, and platelet count of 301,000. Patient's creatinine is 0.7. The GFR is greater than 60. A Gram stain taken yesterday from purulent drainage from her face shows white cells but no bacteria. A CT scan of the face and bones showed that there is an abscess present on her face on the right side. cc: Erik Davis MD
[2016-09-15] MEDS ORDERED: VERSED ONE (15:15)
[2016-09-15] MEDS ORDERED: DIPRIVAN 1% ONE (16:28)
[2016-09-15] MEDS: MORPHINE ONE ×3 (16:34→16:47)
[2016-09-15] MEDS ORDERED: MORPHINE ONE (16:55)
--- NOTE | 2016-09-15 17:15 | OPERATIVE NOTE ---
PROCEDURE DATE: 09/15/2016 PREOPERATIVE DIAGNOSIS: Right face abscess. POSTOPERATIVE DIAGNOSIS: Right face abscess. PROCEDURES: 1. Incision and drainage of right face abscess. 2. Debridement of skin and subcutaneous tissue, less than 20 square cm of the right face. SURGEON: Yonathan Licea MD. ANESTHESIA: General. ESTIMATED BLOOD LOSS: 3 mL. COMPLICATIONS: None apparent. SPECIMENS: Purulent fluid for culture findings. It was a large abscess on the right face between the lower eyelid and right naris extending up to the bridge of the nose. There was a large amount of purulent fluid. There was overlying necrotic skin. The area of debridement was 3.4 x 1.5 cm. TECHNIQUE: She was brought to the operating room and placed supine on the table. General LMA anesthesia was induced. She was prepped and draped in sterile fashion. The necrotic skin was excised sharply with a knife back to healthier bleeding edges. The underlying abscess was lanced and a large amount of purulent fluid was drained. The wound and right eye were irrigated copiously with saline. The wound was packed with quarter-inch iodoform gauze and a sterile dressing was applied. There were no apparent complications. cc: Yonathan Licea MD
[2016-09-15] MEDS: VANCOMYCIN 2,000 MG in NS 500 ML IV SCH (18:42)
--- NOTE | 2016-09-15 20:02 | PROGRESS NOTE ---
DATE: 09/15/2016 SUBJECTIVE: The patient is resting comfortably in bed. No acute events noted overnight. OBJECTIVE: Vital Signs: Temperature 98.5 degrees, blood pressure 168/88, heart rate 85, respirations 18, O2 saturations 98% on room air. General: This is a morbidly obese female, lying in bed, in no acute distress. Head: Normocephalic, atraumatic. Heart: S1, S2. Normal. Regular rate and rhythm. Lungs: Clear to auscultation bilaterally. No wheezing. No rales. No rhonchi. Abdomen: Positive bowel sounds. Soft, nontender, nondistended. Extremities: No edema. No cyanosis. No calf tenderness. Neurologic: The patient is alert and oriented x3. LABORATORY: White blood cell count 10, hemoglobin 10, hematocrit 34, platelets 301,000. Sodium 138, potassium 4.4, chloride 100, CO2 27, BUN 7, creatinine 0.7, glucose 92. ASSESSMENT AND PLAN: 1. Right-sided facial abscess with cellulitis. The patient will be taken to the operating room for surgical intervention. Continue on the current IV antibiotic regimen as directed by Dr. Davis. 2. Situational depression. We will restart the patient's Effexor. 3. Hypertension. Continue on lisinopril. 4. Gastrointestinal prophylaxis. Continue on Protonix. cc: Aline Us MD
[2016-09-15] MEDS: PERIDEX MT SCH (20:23)
[2016-09-16] MEDS: XANAX PO PRN ×2 (01:38→23:52)
[2016-09-16] MEDS: OFIRMEV 1000 MG/ISOTONIC SOLN 1,000 MG/100 ML BOTTLE IV SCH ×4 (01:38→20:12)
[2016-09-16] MEDS: DILAUDID IV PRN ×5 (01:39→22:50)
[2016-09-16] MEDS: TORADOL IV SCH ×4 (01:39→20:13)
[2016-09-16 05:43] LABS: MANUAL DIFF NEEDED? NO
[2016-09-16 05:57] LABS: BASO% 0.6 % (0.0-0.8); EOS# 0.17 X1000 (0.0-0.7); EOS% 2.4 % (0.0-10.0); HEMATOCRIT 32.9 % (37.0-47.0); HEMOGLOBIN 10.4 g/dL (12.0-16.0); IMM GRAN# 0.03 X1000 (0.0-0.04); IMM GRAN% 0.4 % (0.0-0.5); LYMPH# 2.31 X1000 (1.2-3.4); LYMPH% 33.3 % (20.5-51.1); MCH 31.4 PG (27-31); MCHC 31.6 g/dL (33-37); MCV 99.4 FL (81-99); MONO# 0.58 X1000 (0.11-0.59); MONO% 8.4 % (1.7-9.3); MPV 10.4 FL (7.4-10.4); NEUT% 54.9 % (42.2-75.2); PLT 329 X1000 (130-400); RBC 3.31 XMIL (4.2-5.4)
[2016-09-16 06:11] LABS: AGAP 10; BUN 10 mg/dL (8-22); CALCIUM 8.7 mg/dL (8.8-10.2); CHLORIDE 102 mmol/L (98-107); COSMO 278; POTASSIUM 4.2 mmol/L (3.5-5.1); SODIUM 139 mmol/L (136-145); TCO2 27 mmol/L (25-35)
[2016-09-16] MEDS: PROTONIX PO SCH (06:31)
[2016-09-16] MEDS: NICODERM PATCH TD SCH (08:01)
[2016-09-16] MEDS: ZYLOPRIM PO SCH (08:02)
[2016-09-16] MEDS: EFFEXOR XR PO SCH (08:02)
[2016-09-16] MEDS: PRILOSEC PO SCH (08:02)
[2016-09-16] MEDS: LOPRESSOR PO SCH (08:03)
[2016-09-16] MEDS: PRINIVIL PO SCH (08:03)
[2016-09-16] MEDS: CLARITIN PO SCH (08:04)
[2016-09-16] MEDS: PERIDEX MT SCH ×2 (08:05→20:12)
[2016-09-16] MEDS: OXY IR PO SCH ×4 (09:00→19:45)
[2016-09-16] MEDS ORDERED: XYLOCAINE-MPF 2% ONE (09:24)
[2016-09-16] MEDS ORDERED: ZOFRAN ONE (09:24)
[2016-09-16] MEDS: MAXIPIME 2 GM/NS 2 GM/100 ML IVPB IV SCH ×2 (10:00→22:49)
[2016-09-16] MEDS: VANCOMYCIN 2,000 MG in NS 500 ML IV SCH (10:18)
--- NOTE | 2016-09-16 16:09 | PROGRESS NOTE ---
DATE: 09/16/2016 PRESENT ILLNESS: The patient is status post incision and drainage of a right facial abscess and debridement of necrotic tissue. MEDICATIONS: The patient is receiving a combination of vancomycin and cefepime. PHYSICAL EXAMINATION: Vital Signs: Temperature is 98.3 degrees, pulse 83, respirations 18, blood pressure is 130/76. General: This is an ill-appearing, middle-aged female. She has a dressing that covers her face and head. The dressing is intact. Lungs: Clear to auscultation. Cardiovascular: Regular heart rate. Neurologic: Patient is alert. She can move her extremities. There is no tremor. LAB AND X-RAY: The only organism grown from all of the cultures taken from the patient's facial infection is a nutritionally variant Streptococcus. CBC today shows a white count of 6,940, hemoglobin 10.4, and platelet count 329,000. Creatinine is 0.7. GFR is greater than 60. ASSESSMENT AND PLAN: Patient is status post drainage of a right facial abscess and debridement of necrotic skin. The plan will be to continue with the patient's current antibiotics. I have asked microbiology to obtain susceptibility studies of the patient's nutritionally variant Streptococcus. COMORBIDITIES: The patient has many caries that may be the source of her facial infection. cc: Erik Davis MD
--- NOTE | 2016-09-16 17:04 | PROGRESS NOTE ---
DATE: 09/16/2016 SUBJECTIVE: The patient is resting comfortably. She has no complaints at this time. OBJECTIVE: Vital Signs: Temperature 98 degrees, blood pressure 139/84, heart rate 76, respirations 18, O2 saturations 100% on room air. General: This is a morbidly obese female, sitting in bed, in no acute distress. Head: The patient has dressing that wraps around her whole head.Heart: S1, S2 normal. Regular rate and rhythm. Lungs: Clear to auscultation bilaterally. Abdomen: Positive bowel sounds. Soft, nontender, nondistended. Extremities: No edema. No cyanosis. No calf tenderness. Neurologic: The patient is alert and oriented x3. LABORATORY DATA: White blood cell count 6.9, hemoglobin 10, hematocrit 32, platelets 329,000. Sodium 139, potassium 4.2. Chloride 102. CO2 of 27. BUN 10, creatinine 0.7, glucose 118. ASSESSMENT AND PLAN: 1. Status post incision and drainage of her right face abscess with debridement. The wound culture is growing Streptococcus. Continue with wound care and IV antibiotic therapy as directed by Dr. Davis. 2. Constipation. We will start the patient on a scheduled laxative therapy. 3. Situational depression. Continue on Effexor. 4. Hypertension. Continue on lisinopril. 5. Deep vein thrombosis prophylaxis. Continue with sequential compression devices. cc: Aline Us MD
--- NOTE | 2016-09-16 19:52 | PROGRESS NOTE ---
DATE: 09/16/2016 SUBJECTIVE: The patient complains of some pain in her right face, although this is improved from preoperative exam. OBJECTIVE: Vital Signs: She is afebrile. Vital signs are stable. General: She is alert and oriented x3. No acute distress. Skin: Her right facial wound was examined. There was some slough, but no gross purulence. The wound was repacked and dressed. ASSESSMENT AND PLAN: A 45-year-old female, status post incision and drainage and debridement of right facial abscess. We will continue local wound care and antibiotics and follow up culture results. cc: Yonathan Licea MD
[2016-09-16] MEDS: COLACE PO SCH (20:13)
[2016-09-16] MEDS: DULCOLAX PR SCH (20:13)
[2016-09-17] MEDS: DILAUDID IV PRN ×4 (02:47→21:00)
[2016-09-17] MEDS: TORADOL IV SCH ×2 (02:47→09:22)
[2016-09-17] MEDS: OFIRMEV 1000 MG/ISOTONIC SOLN 1,000 MG/100 ML BOTTLE IV SCH ×4 (02:47→18:46)
[2016-09-17 05:45] LABS: MANUAL DIFF NEEDED? NO
[2016-09-17 05:55] LABS: BASO% 0.7 % (0.0-0.8); EOS# 0.17 X1000 (0.0-0.7); EOS% 2.8 % (0.0-10.0); HEMATOCRIT 31.6 % (37.0-47.0); HEMOGLOBIN 9.9 g/dL (12.0-16.0); IMM GRAN# 0.03 X1000 (0.0-0.04); IMM GRAN% 0.5 % (0.0-0.5); LYMPH# 2.21 X1000 (1.2-3.4); LYMPH% 36.6 % (20.5-51.1); MCH 30.9 PG (27-31); MCHC 31.3 g/dL (33-37); MCV 98.8 FL (81-99); MONO# 0.56 X1000 (0.11-0.59); MONO% 9.3 % (1.7-9.3); NEUT% 50.1 % (42.2-75.2); PLT 319 X1000 (130-400)
[2016-09-17 06:29] LABS: AGAP 8; BUN 9 mg/dL (8-22); CALCIUM 8.1 mg/dL (8.8-10.2); CHLORIDE 103 mmol/L (98-107); COSMO 276; POTASSIUM 4.5 mmol/L (3.5-5.1); SODIUM 139 mmol/L (136-145); TCO2 28 mmol/L (25-35)
[2016-09-17] MEDS: PROTONIX PO SCH (06:48)
[2016-09-17] MEDS ORDERED: VANCOMYCIN 2,500 MG in NS 500 ML IV SCH (08:00)
[2016-09-17] MEDS: OXY IR PO SCH ×3 (09:13→17:25)
[2016-09-17] MEDS: PRILOSEC PO SCH (09:14)
[2016-09-17] MEDS: COLACE PO SCH ×2 (09:14→21:00)
[2016-09-17] MEDS: PERIDEX MT SCH ×2 (09:14→20:59)
[2016-09-17] MEDS: EFFEXOR XR PO SCH (09:14)
[2016-09-17] MEDS: CLARITIN PO SCH (09:14)
[2016-09-17] MEDS: ZYLOPRIM PO SCH (09:14)
[2016-09-17] MEDS: LOPRESSOR PO SCH (09:14)
[2016-09-17] MEDS: PRINIVIL PO SCH (09:14)
[2016-09-17] MEDS: MIRALAX PO SCH (09:15)
[2016-09-17] MEDS: NICODERM PATCH TD SCH (09:15)
--- NOTE | 2016-09-17 12:38 | PROGRESS NOTE ---
DATE: 09/17/2016 SUBJECTIVE: The patient has no new complaints. OBJECTIVE: Vital Signs: She is afebrile. Vital signs are stable. General: She is alert and oriented x3. No acute distress. Face: The dressing was taken down and the packing removed. The wound has less slough, there is a little more pink base to the wound. There is no gross purulence. I re-dressed the wound with saline moistened gauze. Culture results are actually negative for this infection. ASSESSMENT AND PLAN: A 45-year-old female, status post incision and drainage and debridement of abscess of the right face. We need to continue local wound care. I think antibiotics to cover staph and strep are indicated at least for another [address] Davis is following and will follow his recommendations. This wound hopefully will granulate over the next week or so. She may ultimately need a skin graft or flap coverage. cc: Yonathan Licea MD
[2016-09-17] MEDS: MAXIPIME 2 GM/NS 2 GM/100 ML IVPB IV SCH (12:47)
--- NOTE | 2016-09-17 14:03 | PROGRESS NOTE ---
DATE: 09/17/2016 PRESENT ILLNESS: The patient is status post incision and drainage of a right facial abscess and debridement of necrotic tissue. She also has small abscesses where they occur in places where her skin rubs against itself, such as in the axilla and in the groin. MEDICATIONS: Currently, the patient is receiving vancomycin and cefepime. PHYSICAL EXAMINATION: Vital Signs: Temperature is 97.8 degrees, pulse 83, respirations 18, blood pressure 157/79. General: This is an obese, middle-aged female. She is in no acute distress. Lungs clear to auscultation. Cardiovascular: Regular heart rate. Abdomen is soft and nontender. In the groin area and in the axillary area. the patient has some small abscesses or pustular lesions that you can squeeze pus from. This occurs where the skin rubs against itself. The patient's face still has a large dressing around it. The dressing is intact. LABORATORY DATA AND X-RAY: CBC today shows a white count of 6040, hemoglobin 9.9, and platelet count 319,000. Creatinine 0.7. GFR is greater than 60. A culture from the operative area is growing Streptococcus constellatus. ASSESSMENT AND PLAN: I have switched the patient from her current antibiotics, namely vancomycin and cefepime to Rocephin being given in a dose of 2 g IV every 24 hours. I told the patient that she is going to have to shower instead of bath and use a more bactericidal soap such as Dial rather than such as Dove. Also, I told her that she will need to lose weight in order to prevent herself from getting a lot of a difference abscesses she has gotten over the years. The patient's comorbidity is that she has many caries which could have been a source of fascial infection. Although, the patient is obese which might be responsible for some of the smaller abscess is she gets in intertriginous areas. cc: Erik Davis MD
[2016-09-17] MEDS: ROCEPHIN 2 GM/NS 2 GM/50 ML IVPB IV SCH (15:35)
--- NOTE | 2016-09-17 16:47 | PROGRESS NOTE ---
DATE: 09/17/2016 SUBJECTIVE: The patient is sitting in bed. She has a dressing that wraps around her whole face. She does complain of some pain occasionally, but states that she feels a lot better. OBJECTIVE: Vital Signs: Temperature 98 degrees, blood pressure 127/68, heart rate 78, respirations 16, O2 saturations 100% on room air. General: This is an elderly female, sitting in bed in no acute distress. Head: Normocephalic, atraumatic. Heart: S1, S2. Normal. Regular rate and rhythm. Lungs: Clear to auscultation bilaterally. No wheezes, no rales, no rhonchi. Abdomen: Positive. Bowel sounds soft, nontender, nondistended. Extremities: No edema. No cyanosis. No calf tenderness. Neurologic: The patient is alert and oriented x3. LABS: White blood cell count 6, hemoglobin 9.9, hematocrit 31, platelets 319. Potassium 4.5, sodium 139, BUN 9, creatinine 0.7, glucose 88. ASSESSMENT AND PLAN: 1. Status post incision and drainage of a right facial abscess with debridement secondary to Streptococcus. Continue on the current intravenous antibiotic therapy as directed by Dr. Davis. Wound care as per the general surgeon. 2. Morbid obesity. Aware. 3. Hypertension. Controlled. 4. Tobacco dependence. Continue on the NicoDerm patch. 5. Deep vein thrombosis prophylaxis. Will start the patient on Lovenox. cc: Aline Us MD
[2016-09-17] MEDS: LOVENOX SUBQ SCH (17:33)
[2016-09-17] MEDS: DULCOLAX PR SCH (21:00)
[2016-09-17] MEDS: XANAX PO PRN (22:20)
[2016-09-18] MEDS: OFIRMEV 1000 MG/ISOTONIC SOLN 1,000 MG/100 ML BOTTLE IV SCH ×4 (01:20→13:18)
[2016-09-18] MEDS: DILAUDID IV PRN ×5 (01:20→19:53)
[2016-09-18 05:41] LABS: MANUAL DIFF NEEDED? NO
[2016-09-18 05:53] LABS: BASO% 0.8 % (0.0-0.8); EOS% 3.3 % (0.0-10.0); HEMATOCRIT 31.8 % (37.0-47.0); HEMOGLOBIN 10.1 g/dL (12.0-16.0); IMM GRAN# 0.06 X1000 (0.0-0.04); LYMPH# 2.23 X1000 (1.2-3.4); LYMPH% 36.7 % (20.5-51.1); MCH 31.5 PG (27-31); MCHC 31.8 g/dL (33-37); MCV 99.1 FL (81-99); MONO# 0.67 X1000 (0.11-0.59); MPV 10.2 FL (7.4-10.4); NEUT% 47.2 % (42.2-75.2); PLT 342 X1000 (130-400); RBC 3.21 XMIL (4.2-5.4)
[2016-09-18 06:13] LABS: AGAP 8; BUN 8 mg/dL (8-22); CALCIUM 8.2 mg/dL (8.8-10.2); CHLORIDE 102 mmol/L (98-107); COSMO 277; POTASSIUM 4.5 mmol/L (3.5-5.1); SODIUM 139 mmol/L (136-145); TCO2 29 mmol/L (25-35)
[2016-09-18] MEDS: PROTONIX PO SCH (06:31)
[2016-09-18] MEDS: MIRALAX PO SCH (09:36)
[2016-09-18] MEDS: NICODERM PATCH TD SCH (09:36)
[2016-09-18] MEDS: COLACE PO SCH ×3 (09:37→23:23)
[2016-09-18] MEDS: PERIDEX MT SCH ×3 (09:37→23:23)
[2016-09-18] MEDS: PRILOSEC PO SCH (09:37)
[2016-09-18] MEDS: CLARITIN PO SCH (09:37)
[2016-09-18] MEDS: OXY IR PO SCH ×3 (09:37→17:33)
[2016-09-18] MEDS: PRINIVIL PO SCH (09:37)
[2016-09-18] MEDS: ZYLOPRIM PO SCH (09:37)
[2016-09-18] MEDS: EFFEXOR XR PO SCH (09:37)
[2016-09-18] MEDS: LOPRESSOR PO SCH ×3 (09:37→23:23)
--- NOTE | 2016-09-18 11:41 | PROGRESS NOTE ---
DATE: 09/18/2016 SUBJECTIVE: The patient is status post incision and drainage and excision of necrotic skin of a right facial abscess. The patient also has some very small abscesses and intertriginous areas such as axilla and groin. MEDICATIONS: The patient yesterday was switched to Rocephin in a dose of 2 g IV every 24 hours. PHYSICAL EXAMINATION: Vital Signs: Temperature is 98.1 degrees, pulse 94, respirations 18, blood pressure 142/61. General: This is an obese middle-aged female. She is in no acute distress. Face: The swelling has gone down dramatically on the right side of her face. The necrotic skin has been resected and the tissue that is present there is beefy red in color. Lungs: Clear to auscultation. Cardiovascular: Regular heart rate. Abdomen: Soft and nontender. LAB AND X-RAY: There is no new x-ray today. The CBC shows a white count of 6080, hemoglobin 10.1, and platelet count 342,000. Creatinine is 0.7. GFR is greater than 60. ASSESSMENT AND PLAN: The patient has a streptococcal infection of her face. She is status post surgery. My plan is to continue Rocephin. Patient's comorbidity is that she has many caries in her mouth that could have been associated with the infection. I do notice that at times she will scratch herself quite a bit and possibly she scratched her face and then infection started as a result of that. The patient does have small abscesses as mentioned above. I think this is due the fact that she is overweight and these small abscesses occur in intertriginous areas of her body. Also, I have told her that she needs to shower instead bath and to use a bactericidal soap such as Dial rather than a creamy soap such as Dove, which is what she uses now. cc: Erik Davis MD
--- NOTE | 2016-09-18 12:50 | PROGRESS NOTE ---
DATE: 09/18/2016 SUBJECTIVE: The patient still complains of some pain in her face and light hurting her right eye. She says her vision through the right eye is blurry. OBJECTIVE: She is afebrile. Vital signs are stable.General: She is alert and oriented x3. No acute distress. The wound has a clean base, no gross purulence. There is some mild serous drainage. LABORATORY: White blood cell count 6000. ASSESSMENT/PLAN: A 45-year-old female with a right face abscess due to strep pharynges. She is on antibiotics per Dr. Davis. We will continue local wound care with silver alginate gauze in the wound. I have ordered some Visine Eye drops. She may need a funduscopic ophthalmologic evaluation soon for her continued visual disturbance. cc: Yonathan Licea MD
[2016-09-18] MEDS: ROCEPHIN 2 GM/NS 2 GM/50 ML IVPB IV SCH (13:23)
[2016-09-18] MEDS: VISINE OPH DROPS RIGHT EYE PRN (13:23)
--- NOTE | 2016-09-18 14:18 | PROGRESS NOTE ---
DATE: 09/18/2016 SUBJECTIVE: The patient complains of blurred vision in her right eye. Her dressing was removed and the wound was examined, and appears to be clean and healing well. OBJECTIVE: Vital Signs: Temperature 98.2 degrees, blood pressure 171/86, heart rate 82, respirations 18, and O2 saturation is 98% on room air. General: This is a morbidly obese female, sitting up in bed in no acute distress. HEENT: Head normocephalic, atraumatic. Heart: S1 and S2 normal. Regular rate and rhythm. Lungs: Clear to auscultation bilaterally. No wheezes. No rales. No rhonchi. Abdomen: Positive bowel sounds. Soft, nontender, nondistended. Extremities: No edema. No cyanosis. No calf tenderness. Neuro: Alert and oriented x3. LABORATORY: White blood cell count 6, hemoglobin 10, hematocrit 31. Sodium 139, potassium 4.5, chloride 102, BUN 8, creatinine 0.7, glucose 111. ASSESSMENT AND PLAN: 1. Status post incision and drainage of right facial abscess secondary to Streptococcus. Continue on the current antibiotic regimen as directed by Dr. Davis. Wound care as per the general surgeon. 2. Blurred vision in the right eye. The patient likely needs to be seen by an cigarette and filter chief inspector for a complete eye exam. 3. Hypertension. Will adjust the patient's antihypertensives. 4. Morbid obesity. Aware. 5. Constipation. Continue on scheduled laxative therapy. 6. History of gout. Continue on allopurinol. 7. Tobacco dependence. Continue on NicoDerm patch. 8. Situational depression. Continue on Effexor. cc: Aline Us MD [facility]
[2016-09-18] MEDS: LOVENOX SUBQ SCH (17:33)
[2016-09-18] MEDS: DULCOLAX PR SCH (20:04)
[2016-09-19] MEDS: DILAUDID IV PRN ×6 (00:15→22:31)
[2016-09-19] MEDS: PROTONIX PO SCH ×2 (05:53→06:24)
[2016-09-19 07:04] LABS: AGAP 9; BUN 9 mg/dL (8-22); CALCIUM 8.5 mg/dL (8.8-10.2); CHLORIDE 99 mmol/L (98-107); COSMO 276; POTASSIUM 4.3 mmol/L (3.5-5.1); SODIUM 139 mmol/L (136-145); TCO2 31 mmol/L (25-35)
[2016-09-19] MEDS: ZYLOPRIM PO SCH (08:21)
[2016-09-19] MEDS: PRINIVIL PO SCH (08:21)
[2016-09-19] MEDS: XANAX PO PRN (08:21)
[2016-09-19] MEDS: LOPRESSOR PO SCH ×2 (08:21→22:22)
[2016-09-19] MEDS: PRILOSEC PO SCH (08:21)
[2016-09-19] MEDS: OXY IR PO SCH ×3 (08:21→18:16)
[2016-09-19] MEDS: PERIDEX MT SCH ×2 (08:22→22:22)
[2016-09-19] MEDS: NICODERM PATCH TD SCH (08:22)
[2016-09-19] MEDS: EFFEXOR XR PO SCH (08:22)
[2016-09-19] MEDS: COLACE PO SCH ×2 (08:22→22:22)
[2016-09-19] MEDS: CLARITIN PO SCH (08:22)
[2016-09-19] MEDS: MIRALAX PO SCH (08:22)
[2016-09-19] MEDS: CILOXAN OPHTH SOLN RIGHT EYE SCH ×4 (11:34→22:24)
[2016-09-19] MEDS: PERCOCET-5 PO PRN ×2 (11:35→20:47)
[2016-09-19] MEDS: LOVENOX SUBQ SCH ×2 (14:14→17:54)
[2016-09-19] MEDS: ROCEPHIN 2 GM/NS 2 GM/50 ML IVPB IV SCH (14:15)
--- NOTE | 2016-09-19 15:16 | PROGRESS NOTE ---
DATE: 09/19/2016 SUBJECTIVE: The patient is resting comfortably in bed. She complains of a pressure in her right eye as well as sensitivity to light. The patient also had some green discharge coming from her right eye this morning. OBJECTIVE: Vital Signs: Temperature 98 degrees, blood pressure 156/81, heart rate 71, respirations 18, O2 saturation is 100% on room air. General: This is a morbidly obese female sitting in bed in no acute distress. Head: Normocephalic. Face. The patient has a dressing applied to the right side of her face right under her right eye and dressing appears to be clean, dry and intact. Heart: S1, S2. Normal. Regular rate and rhythm. Lungs: Clear to auscultation bilaterally. No wheezing. No rales. No rhonchi. Abdomen: Positive bowel sounds. Soft, obese, nontender, nondistended. Extremities: No edema. No cyanosis. No calf tenderness. Peripheral pulses palpable. Neurologic: The patient is alert and oriented x3. No focal neurologic deficits noted. LABS: Sodium 139, potassium 4.3, chloride 99, CO2 31, BUN 9, creatinine 0.7, glucose 103. ASSESSMENT AND PLAN: 1. Status post incision and drainage of a right facial abscess secondary to streptococcus. Continue with wound care and IV antibiotic therapy. 2. Right eye visual disturbance. We will start the patient on Ciloxan. The patient would most likely benefit from an ophthalmology consult. May need to arrange this while the patient is hospitalized. 3. Hypertension. Will add hydralazine. 4. Morbid obesity. Aware. 5. Constipation. Continue on scheduled laxative therapy. 6. Tobacco dependence. Continue on the NicoDerm patch. 7. Situational depression. Continue on Effexor. cc: Aline Us MD [facility]
[2016-09-19] MEDS: APRESOLINE PO SCH ×2 (18:17→22:22)
[2016-09-19] MEDS: DULCOLAX PR SCH (22:27)
[2016-09-20] MEDS: PERCOCET-5 PO PRN ×3 (02:04→16:58)
[2016-09-20] MEDS: CILOXAN OPHTH SOLN RIGHT EYE SCH ×7 (02:05→22:49)
[2016-09-20] MEDS: PROTONIX PO SCH ×2 (05:39→05:59)
[2016-09-20] MEDS: APRESOLINE PO SCH ×3 (05:39→20:46)
[2016-09-20] MEDS: MIRALAX PO SCH (09:23)
[2016-09-20] MEDS: NICODERM PATCH TD SCH (09:23)
[2016-09-20] MEDS: PERIDEX MT SCH ×2 (09:23→20:46)
[2016-09-20] MEDS: PRILOSEC PO SCH (09:24)
[2016-09-20] MEDS: COLACE PO SCH ×2 (09:24→20:47)
[2016-09-20] MEDS: ZYLOPRIM PO SCH (09:24)
[2016-09-20] MEDS: OXY IR PO SCH ×4 (09:24→20:47)
[2016-09-20] MEDS: EFFEXOR XR PO SCH (09:26)
[2016-09-20] MEDS: PRINIVIL PO SCH (09:26)
[2016-09-20] MEDS: CLARITIN PO SCH (09:26)
[2016-09-20] MEDS: LOPRESSOR PO SCH ×2 (09:26→20:46)
[2016-09-20 09:36] LABS: BASO% 0.8 % (0.0-0.8); EOS% 1.5 % (0.0-10.0); HEMOGLOBIN 11.1 g/dL (12.0-16.0); IMM GRAN# 0.05 X1000 (0.0-0.04); IMM GRAN% 0.8 % (0.0-0.5); LYMPH# 2.01 X1000 (1.2-3.4); LYMPH% 30.7 % (20.5-51.1); MANUAL DIFF NEEDED? NO; MCH 30.6 PG (27-31); MCHC 31.7 g/dL (33-37); MCV 96.4 FL (81-99); MONO# 0.71 X1000 (0.11-0.59); MONO% 10.9 % (1.7-9.3); MPV 10.2 FL (7.4-10.4); NEUT% 55.3 % (42.2-75.2); PLT 413 X1000 (130-400); RBC 3.63 XMIL (4.2-5.4)
[2016-09-20 10:08] LABS: AGAP 9; BUN 8 mg/dL (8-22); CALCIUM 8.8 mg/dL (8.8-10.2); CHLORIDE 98 mmol/L (98-107); COSMO 274; POTASSIUM 4.2 mmol/L (3.5-5.1); SODIUM 138 mmol/L (136-145); TCO2 31 mmol/L (25-35)
[2016-09-20] MEDS: DILAUDID IV PRN ×3 (11:50→22:57)
--- NOTE | 2016-09-20 14:21 | Diag Imaging Result Doc PS360 ---
EXAM: FLAT/UPRIGHT ABD/1 VIEW CHEST INDICATION: abdominal pain TECHNIQUE: 3 views COMPARISON: Chest radiograph dated 09/12/2016 FINDINGS: There is somewhat increased stool in the colon suggesting possible constipation. There are unremarkable bowel gas patterns. There is no obstructive bowel pattern. There is no evidence of large volume free abdominal gas. There is no evidence of organomegaly. There is subsegmental atelectasis at both lung bases. The lungs are clear, otherwise. There is no discrete pleural fluid collection or pneumothorax. The cardiomediastinal silhouette and central vasculature are grossly unremarkable. IMPRESSION: 1.Possible constipation. 2.Bibasilar subsegmental atelectasis. Electronically signed by Tylor Dillard 09/20/2016 2:19 PM
[2016-09-20] MEDS: XANAX PO PRN (14:46)
[2016-09-20] MEDS: ROCEPHIN 2 GM/NS 2 GM/50 ML IVPB IV SCH (14:46)
[2016-09-20] MEDS ORDERED: CITRATE OF MAGNESIA PO ONE (16:24)
[2016-09-20] MEDS: LOVENOX SUBQ SCH (16:54)
--- NOTE | 2016-09-20 17:03 | PROGRESS NOTE ---
DATE: 09/20/2016 SUBJECTIVE: The patient states that her right eye feels a lot better today. She states that she is able to open it and see. OBJECTIVE: Vital Signs: Temperature 98.5 degrees, blood pressure 145/72, heart rate 77, respiration 16, O2 saturations 94% on room air. General: This is a morbidly obese female, lying in bed, in no acute distress. HEENT: Head: Normocephalic, atraumatic. Eyes: Her right appears injected and irritated. Neck: Supple. No JVD. No lymphadenopathy. Lungs: Clear to auscultation bilaterally. Abdomen: Positive bowel sounds. Soft, nontender, nondistended. Extremities: No edema. No cyanosis. No calf tenderness. Neuro: The patient is alert and oriented x3. LABS: White blood cell count 6.5, hemoglobin 11, hematocrit 35, platelets 413,000. Sodium 138, potassium 4.2, chloride 98, CO2 31, BUN 8, creatinine 0.6. ASSESSMENT AND PLAN: 1. Status post incision and drainage of a right facial abscess secondary to streptococcus. Continue on IV antibiotic therapy and wound care. 2. Right eye conjunctivitis. Continue with the Ciloxan antibiotic eyedrops. The patient will most likely need to follow up with an variety performer upon discharge. 3. Hypertension. Controlled. Continue on the current antihypertensives. 4. Morbid obesity. Aware. 5. Situational depression. Continue on Effexor. 6. Constipation. Continue on scheduled laxatives. We will also give the patient a dose of magnesium citrate today. cc: Aline Us MD
[2016-09-20] MEDS: DULCOLAX PR SCH (22:48)
[2016-09-21] MEDS: PERCOCET-5 PO PRN ×5 (00:32→23:11)
[2016-09-21] MEDS: XANAX PO PRN ×2 (00:32→17:50)
[2016-09-21] MEDS: CILOXAN OPHTH SOLN RIGHT EYE SCH ×6 (01:33→22:15)
[2016-09-21] MEDS: APRESOLINE PO SCH ×3 (05:29→20:39)
[2016-09-21] MEDS: PROTONIX PO SCH ×2 (05:30→06:26)
[2016-09-21 06:19] LABS: MANUAL DIFF NEEDED? NO
[2016-09-21 06:55] LABS: AGAP 10; BUN 9 mg/dL (8-22); CALCIUM 9.3 mg/dL (8.8-10.2); CHLORIDE 97 mmol/L (98-107); COSMO 272; POTASSIUM 4.5 mmol/L (3.5-5.1); SODIUM 137 mmol/L (136-145); TCO2 30 mmol/L (25-35)
[2016-09-21 08:37] LABS: BASO% 0.6 % (0.0-0.8); EOS# 0.14 X1000 (0.0-0.7); EOS% 1.7 % (0.0-10.0); HEMATOCRIT 37.1 % (37.0-47.0); IMM GRAN# 0.07 X1000 (0.0-0.04); IMM GRAN% 0.8 % (0.0-0.5); LYMPH# 3.14 X1000 (1.2-3.4); LYMPH% 37.5 % (20.5-51.1); MCH 31.7 PG (27-31); MCHC 32.3 g/dL (33-37); MCV 97.9 FL (81-99); MONO# 0.89 X1000 (0.11-0.59); MONO% 10.6 % (1.7-9.3); MPV 10.7 FL (7.4-10.4); NEUT% 48.8 % (42.2-75.2); PLT 439 X1000 (130-400); RBC 3.79 XMIL (4.2-5.4)
[2016-09-21] MEDS: NICODERM PATCH TD SCH (09:13)
[2016-09-21] MEDS: PERIDEX MT SCH ×2 (09:13→20:39)
[2016-09-21] MEDS: CLARITIN PO SCH (09:14)
[2016-09-21] MEDS: OXY IR PO SCH ×3 (09:14→17:04)
[2016-09-21] MEDS: PRINIVIL PO SCH (09:14)
[2016-09-21] MEDS: PRILOSEC PO SCH (09:14)
[2016-09-21] MEDS: EFFEXOR XR PO SCH (09:15)
[2016-09-21] MEDS: COLACE PO SCH ×2 (09:15→20:39)
[2016-09-21] MEDS: ZYLOPRIM PO SCH (09:15)
[2016-09-21] MEDS: LOPRESSOR PO SCH ×2 (09:15→20:39)
[2016-09-21] MEDS: MIRALAX PO SCH (09:15)
[2016-09-21] MEDS: DILAUDID IV PRN ×3 (10:07→20:40)
--- NOTE | 2016-09-21 12:10 | PROGRESS NOTE ---
DATE: 09/21/2016 PRESENT ILLNESS: The patient has a severe infection of her face and has had debridement of the infection performed by Dr. Licea. The patient's face looks much better to me. It is much less swollen. She is able to move her eye. The eye is not injected and she can see through it. MEDICATIONS: The patient is on Rocephin. PHYSICAL EXAMINATION: Vital Signs: Temperature is 98 degrees, pulse 70, respirations 16, blood pressure 166/79. Lungs: Clear to auscultation. Cardiovascular: Heart rate is regular. Abdomen: Soft and nontender. HEAD, EYES, EARS, NOSE, AND THROAT: The patient's face is less swollen. The patient's wound has beefy red tissue. The right eye is not injected and has good range of motion. LABORATORY AND X-RAY: The patient's CBC shows a white count of 8370, hemoglobin 12 and platelet count 439,000. Creatinine is 0.7. GFR is greater than 60. A specimen from the patient's face on Gram stain showed Gram negative rods, but on culture nothing grew. ASSESSMENT AND PLAN: 1. The patient has facial infection. As mentioned above, she is on Rocephin. If there are Gram- negative rods present, Rocephin does have fairly good gram-negative valentina coverage. My plan would be to continue with Rocephin. I have asked the Micro laboratory to review the Gram stain to make sure that Gram-negative rods were actually seen. 2. Patient's comorbidity is that she does have small abscesses, mainly in intertriginous areas and she does scratch them, and possibly she had a small abscess and then scratched her face causing the infection. Also, I have told her that she should be showering instead of bathing and to use a more bactericidal soap such as Dial rather than a creamy soaps such as Dove which she uses now. cc: Erik Davis MD
--- NOTE | 2016-09-21 13:16 | PROGRESS NOTE ---
DATE: 09/21/2016 SUBJECTIVE: The patient states that she is having some pain in her right eye. She does have some discharge coming from the right eye. OBJECTIVE: Vital Signs: Temperature 98 degrees, blood pressure 165/96, heart rate 7,0 respirations 18. O2 saturation 95% on room air. General: This is a morbidly obese female, lying in bed, in no acute distress. HEENT: Head is normocephalic, atraumatic. Eyes : The right eye is red with slight discharge. Heart: S1, S2. Normal. Regular rate and rhythm. Lungs: Clear to auscultation bilaterally. No crackles. No rales. Abdomen: Positive bowel sounds. Soft, nontender, nondistended. Extremities: No edema. No cyanosis. No calf tenderness. Neurologic: The patient is alert oriented x3. LABORATORY DATA: White blood cell count 8.3, hemoglobin 12, hematocrit 37, platelets 439,000. Sodium 137, potassium 4.5, chloride 97, CO2 30, BUN 9, creatinine 0.7. ASSESSMENT AND PLAN: 1. Status post incision and drainage of a right facial abscess secondary to streptococcus. Continue on the current IV antibiotic regimen and wound care. 2. Right eye conjunctivitis. Continue on the antibiotic eyedrops. She will need an ophthalmology appointment to be made upon discharge. 3. Hypertension. Controlled. 4. Morbid obesity. Aware. 5. Constipation. Continue on scheduled laxatives. 6. Situational depression. Continue on Effexor. cc: Aline Us MD [facility]
[2016-09-21] MEDS: ROCEPHIN 2 GM/NS 2 GM/50 ML IVPB IV SCH (13:21)
--- NOTE | 2016-09-21 13:32 | PROGRESS NOTE ---
DATE: 09/21/2016 SUBJECTIVE: The patient says she can open her eye better, but still is having trouble seeing clearly. OBJECTIVE: Vital signs: She is afebrile. Vital signs are stable. General: She is alert and oriented x4. No acute distress. Skin: The right face open wound is looking much better. Beefy red granulation tissue. No purulence or foul drainage is seen. The swelling in her face has improved significantly. LABORATORY: White blood cell count 8.4. ASSESSMENT/PLAN: A 45-year-old female with right face abscess, now status post debridement and drainage. The wound is healing nicely. She needs further evaluation of her eyesight, hopefully by Ophthalmology. She can follow up with me as an outpatient for further wound care. cc: Yonathan Licea MD
[2016-09-21] MEDS: LOVENOX SUBQ SCH (17:04)
[2016-09-21] MEDS: DULCOLAX PR SCH (22:49)
[2016-09-22] MEDS: DILAUDID IV PRN ×3 (02:15→20:03)
[2016-09-22] MEDS: CILOXAN OPHTH SOLN RIGHT EYE SCH ×2 (02:40→05:19)
[2016-09-22] MEDS: PERCOCET-5 PO PRN ×4 (05:07→23:31)
[2016-09-22] MEDS: APRESOLINE PO SCH ×3 (05:07→20:04)
[2016-09-22] MEDS: PROTONIX PO SCH ×2 (05:08→06:07)
[2016-09-22 06:32] LABS: HEMATOCRIT 36.2 % (37.0-47.0); HEMOGLOBIN 11.6 g/dL (12.0-16.0); MCH 31.4 PG (27-31); MCV 97.8 FL (81-99); MPV 10.2 FL (7.4-10.4); RBC 3.7 XMIL (4.2-5.4)
[2016-09-22 06:57] LABS: AGAP 10; BUN 10 mg/dL (8-22); CALCIUM 9.1 mg/dL (8.8-10.2); CHLORIDE 98 mmol/L (98-107); COSMO 275; POTASSIUM 4.5 mmol/L (3.5-5.1); SODIUM 138 mmol/L (136-145); TCO2 30 mmol/L (25-35)
[2016-09-22] MEDS: OXY IR PO SCH ×3 (08:14→16:47)
[2016-09-22] MEDS: ZYLOPRIM PO SCH (08:15)
[2016-09-22] MEDS: COLACE PO SCH ×2 (08:15→20:04)
[2016-09-22] MEDS: LOPRESSOR PO SCH ×2 (08:15→20:04)
[2016-09-22] MEDS: PRINIVIL PO SCH (08:15)
[2016-09-22] MEDS: EFFEXOR XR PO SCH (08:15)
[2016-09-22] MEDS: PERIDEX MT SCH ×2 (08:15→20:03)
[2016-09-22] MEDS: PRILOSEC PO SCH (08:16)
[2016-09-22] MEDS: CLARITIN PO SCH (08:16)
[2016-09-22] MEDS: NICODERM PATCH TD SCH (08:16)
[2016-09-22] MEDS: MIRALAX PO SCH (08:16)
--- NOTE | 2016-09-22 09:52 | PROGRESS NOTE ---
DATE: 09/22/2016 PRESENT ILLNESS: The patient has a severe infection of her face. She has undergone debridement of the infection performed by Dr. Licea. Streptococcus was isolated from her face. Today, I have looked at the patient's eye, and it looks much worse. It is injected now and the light seems to hurt it. MEDICATIONS: The patient is on Rocephin IV and ciprofloxacin eye drops. PHYSICAL EXAMINATION: Vital Signs: Temperature is 98.5, pulse 71, respirations 14, blood pressure 123/84. Generally: This is a somewhat ill-appearing, middle-aged female. She is in no acute distress. HEENT: The right side of the face is much less swollen and the wound still has beefy red tissue and is getting smaller. The eye, however, today is injected and when I open the eyelid, it seemed that the light hurt her. Lungs: Clear to auscultation. Cardiovascular: Heart rate is regular. Abdomen: Soft and nontender. LAB AND X-RAY: The patient's CBC today shows a white count of 7730, hemoglobin 11.6, and platelet count 405,000. Creatinine 0.6. GFR is greater than 60. ASSESSMENT AND PLAN: The patient's facial infection seems to be doing well. However, today her right eye does not seem to be doing well. My plan is to discontinue the Cipro eyedrops and place the patient on gentamicin eyedrops 2 drops in the right eye every 6 hours. The patient's comorbidities include the fact that she does get small abscesses or possibly pustules in the intertriginous parts of her body. She scratches these areas and possibly she could have inoculated her face due to the scratching. I switched the eyedrops from Cipro to gentamicin because in vitro gentamicin has much better activity against streptococci, which were grown both from the patient's facial infection and from her eye, then the activity of Cipro against the same organisms. I plan to continue Rocephin. COMORBIDITIES: She gets small abscesses or pustules in her body. cc: Erik Davis MD
[2016-09-22] MEDS: GENTAMICIN 0.3% OPH DROPS RIGHT EYE SCH ×3 (10:16→20:03)
[2016-09-22] MEDS: ROCEPHIN 2 GM/NS 2 GM/50 ML IVPB IV SCH (14:12)
[2016-09-22] MEDS: LOVENOX SUBQ SCH (16:47)
--- NOTE | 2016-09-22 16:47 | PROGRESS NOTE ---
DATE: 09/22/2016 PRIMARY CARE PHYSICIAN: Dr. Rocio Aguirre. HISTORY OF PRESENT ILLNESS: She presented with right facial pain and swelling. Ramandeep Elam is a 45-year-old black female with a medical history of frequent abscesses who was in the past positive for MRSA. Frequent I D of these abscesses. States she drains her own abscesses at times, and points out one under her left arm, one under her right arm, and bilateral groin. She does not have anyone she goes to, to drain them. Apparently, came 2 days ago with right swelling and pain, which she states has been going on for about 1 week. Presented to the emergency room. CT performed of the sinuses on 09/10/2016 showed superficial soft tissue cellulitis of the right cheek, extending in the periorbital area, presumably from dental origin, right maxillary tooth abscess. She was sent home on clindamycin. The patient states she took an Aleve, but the swelling and the pain, hardness and abscess of the face became much worse. She has presented once more. Her white cell count went from 9 two days ago to 13,000. She was with a low grade fever at 99 degrees. Her right eye was swollen and near shut. Her right nares are near completely closed due to swelling. With assessing oropharyngeal air, there was no obvious open wound, and was admitted. PAST MEDICAL HISTORY: 1. 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 Only sees shadows. She is unsure why. There is reported history of deep venous thrombosis, but she states that she has never had blood clots that she knows of. Also reports of seizure disorder, which she denies. 2. Suicidal ideations, but none at the present time. Last was in October 2015. 3. Migraine headaches. 4. Fluid retention. 5. Asthma with COPD. 6. Gastroesophageal reflux disease. 7. Morbid obesity. 8. Hypertension. 9. 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 10. 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 PAST SURGICAL HISTORY: Bilateral tubal ligation. Multiple incisions and draining of the breast, left hand, left elbow, and right gluteus quincy. She states she is feeling better. She was sleeping today. MEDICATIONS: She is on: 1. Ceftriaxone 2 g IV q.24 hours. 2. Effexor ER 75 mg a day. 3. MiraLAX 17 g a day. 4. Protonix 40 mg a day. 5. Oxycodone IR 5 mg p.o. t.i.d. 6. Nicotine patch. 7. Prilosec 40 mg daily. 8. Lopressor 50 mg b.i.d. 9. Claritin 10 mg a day. 10. Prinivil 20 mg q.a.m. 11. Hydroxyzine 25 mg p.o. q.8 hours. 12. Colace 100 mg b.i.d. 13. Allopurinol 100 mg daily. PHYSICAL EXAMINATION: General: Gauze over the right face. Vital Signs: Temperature 98.4 degrees, pulse 75, respirations 18, blood pressure 177/79. HEENT: The pupils are equal, round. Lungs: Clear in all lung houser. Cardiovascular: Regular rhythm and rate, without murmur or S3. Abdomen: Soft. Skin: Warm and dry. LABORATORY STUDIES: Urine output 1400 mL. White count 7730, hematocrit 36, platelet count 405,000. Sodium 138, potassium 4.5, chloride 98, BUN 10, creatinine 0.6. ASSESSMENT AND PLAN: 1. Severe infection of her face. Undergone debridement of the infection, performed by Dr. Licea. Staphylococcus was isolated from face. Patient is on Rocephin and ciprofloxacin eye drops. Rocephin IV due to Streptococcus that was isolated. Continue present treatment. Eye drops. Can continue Cipro eye drops. Dr. Davis has placed her on gentamicin eyedrops as well. 2. Right eye conjunctivitis. Continue antibiotic treatments and added gentamicin. 3. Hypertension. 4. Morbid obesity. 5. Constipation. 6. Situational depression. Continue the Effexor. 7. Looking over orders, I do not see any change. cc: Tad Dykes MD
[2016-09-22] MEDS: DULCOLAX PR SCH (22:43)
[2016-09-23] MEDS: DILAUDID IV PRN ×4 (01:21→22:33)
[2016-09-23] MEDS: GENTAMICIN 0.3% OPH DROPS RIGHT EYE SCH ×6 (01:21→20:16)
[2016-09-23] MEDS: VISINE OPH DROPS RIGHT EYE PRN (02:19)
[2016-09-23] MEDS: APRESOLINE PO SCH ×3 (04:26→20:16)
[2016-09-23] MEDS: PERCOCET-5 PO PRN ×4 (04:26→20:25)
[2016-09-23] MEDS: PROTONIX PO SCH ×2 (04:27→07:22)
--- NOTE | 2016-09-23 08:35 | PROGRESS NOTE ---
DATE: 09/23/2016 PRESENT ILLNESS: The patient has severe streptococcal facial infection with involvement of her right eye. MEDICATIONS: The patient is on IV Rocephin and, yesterday, I switched her from Cipro to gentamicin eyedrops. PHYSICAL EXAMINATION: Vital Signs: Temperature is 98.5 degrees, pulse 72, respirations 18, blood pressure 125/57. Generally, this is an ill-appearing, middle-aged female. She in no acute distress. Head, eyes, ears, nose, and throat: There is much less facial swelling. Her right eye still remains injected and when I open the lid, it seems that the light bothers her eye. Lungs clear to auscultation. Cardiovascular: Regular heart rate. Abdomen soft and nontender. LABORATORY DATA AND X-RAY: The CBC for today shows a white count of 7730, hemoglobin 11.6 and platelet count 405,000. The creatinine 0.6. GFR is greater than 60. ASSESSMENT AND PLAN: The patient has a streptococcal face infection involving the eye. My plan is to continue the gentamicin eye drops and Rocephin. Patient's comorbidities is that she does not have to some extent the best health practices. She does have a history of having small abscesses form in the intertriginous parts of her body. She also has a history of scratching these areas. cc: Erik Davis MD MTDD
[2016-09-23] MEDS: NICODERM PATCH TD SCH (08:36)
[2016-09-23] MEDS: PERIDEX MT SCH ×2 (08:36→20:17)
[2016-09-23] MEDS: ZYLOPRIM PO SCH (08:37)
[2016-09-23] MEDS: COLACE PO SCH ×2 (08:37→20:16)
[2016-09-23] MEDS: EFFEXOR XR PO SCH (08:37)
[2016-09-23] MEDS: PRILOSEC PO SCH (08:37)
[2016-09-23] MEDS: LOPRESSOR PO SCH ×2 (08:37→20:17)
[2016-09-23] MEDS: PRINIVIL PO SCH (08:37)
[2016-09-23] MEDS: OXY IR PO SCH ×3 (08:37→17:36)
[2016-09-23] MEDS: MIRALAX PO SCH (08:38)
[2016-09-23] MEDS: CLARITIN PO SCH (08:38)
--- NOTE | 2016-09-23 12:53 | PROGRESS NOTE ---
DATE: 09/23/2016 SUBJECTIVE: Ms. Elam still has some tingling discomfort around the right cheek. Her right eye is still watering and sensitive to light. OBJECTIVE: Vital Signs: Temp 98.6 degrees, pulse 69, respirations 18, blood pressure is 167/79. Lungs: Clear in all lung houser. Cardiovascular exam: Regular rhythm and rate without murmur or S3. Abdomen: Soft. Skin: Warm and dry. : Urine output 1800 mL. ASSESSMENT AND PLAN: 1. Streptococcal facial infection involving the right eye. Continue intravenous Rocephin and switched her from Cipro to gentamicin eye drops. Continue as those eyes are still very irritated. 2. Right eye conjunctivitis. 3. Hypertension. 4. Morbid obesity. 5. Constipation. 6. Situational depression on Effexor. I think that the infection on the right cheek is improving. Continue present drops. Continue present management. Try and get her up out of bed and try to get her eating some. I think she is concerned because she lives alone. She is a little more awake and alert this morning. cc: Tad Dykes MD
[2016-09-23] MEDS: ROCEPHIN 2 GM/NS 2 GM/50 ML IVPB IV SCH (13:24)
[2016-09-23] MEDS: LOVENOX SUBQ SCH (17:17)
[2016-09-23] MEDS: DULCOLAX PR SCH (20:27)
[2016-09-24] MEDS: PERCOCET-5 PO PRN ×4 (02:26→21:39)
[2016-09-24] MEDS: GENTAMICIN 0.3% OPH DROPS RIGHT EYE SCH ×4 (02:28→21:40)
[2016-09-24] MEDS: APRESOLINE PO SCH ×3 (05:35→21:40)
[2016-09-24] MEDS: PROTONIX PO SCH (06:33)
[2016-09-24] MEDS: DILAUDID IV PRN ×3 (07:10→19:24)
[2016-09-24] MEDS: NICODERM PATCH TD SCH ×2 (07:56→10:31)
[2016-09-24] MEDS: MIRALAX PO SCH ×2 (07:56→10:32)
[2016-09-24] MEDS: COLACE PO SCH ×3 (07:57→21:39)
[2016-09-24] MEDS: EFFEXOR XR PO SCH ×2 (07:57→11:39)
[2016-09-24] MEDS: PRILOSEC PO SCH ×2 (07:57→10:31)
[2016-09-24] MEDS: ZYLOPRIM PO SCH ×2 (07:57→10:30)
[2016-09-24] MEDS: PERIDEX MT SCH ×3 (07:57→21:39)
[2016-09-24] MEDS: OXY IR PO SCH ×4 (07:58→18:07)
[2016-09-24] MEDS: CLARITIN PO SCH ×2 (07:58→10:30)
[2016-09-24] MEDS: LOPRESSOR PO SCH ×3 (07:58→21:39)
[2016-09-24] MEDS: PRINIVIL PO SCH ×2 (07:59→10:30)
--- NOTE | 2016-09-24 08:13 | PROGRESS NOTE ---
DATE: 09/24/2016 PRESENT ILLNESS: The patient has a streptococcal infection of her face involving the soft tissue. She also has a streptococcal eye infection. MEDICATIONS: The patient is getting Rocephin intravenously and gentamicin fluid is being given as eyedrops for the patient. PHYSICAL EXAMINATION: Vital Signs: Temperature is 98 degrees, pulse 77, respirations 16, blood pressure 131/50. General: This is an obese, fairly healthy-appearing, middle-aged female. She is in no acute distress. Lungs: Clear to auscultation. Cardiovascular: Regular heart rate. Abdomen: Soft and nontender. Head, eyes, ears, nose, and throat: The patient's wound on her cheek is filling in. It is not as big as it was. There is beefy red tissue present. The patient's right eye still remains sensitive to light but it is less erythematous on the sclera. LAB AND X-RAY: CBC for today shows a white count of 7,730, hemoglobin 11.6, and platelet count 405,000. Creatinine 0.6. GFR is greater than 30. ASSESSMENT AND PLAN: The patient has streptococcal face infection and eye infection. My plan is to continue with intravenous Rocephin and gentamicin eyedrops. The patient's comorbidities is that the patient does not have the best of health practices. Also she scratches at sores quite a bit. cc: Erik Davis MD
--- NOTE | 2016-09-24 10:36 | PROGRESS NOTE ---
DATE: 09/24/2016 SUBJECTIVE: Ms. Elam is a 45-year-old. She is up in her bed and she is holding her face and rocking and moaning, complaining of pain. OBJECTIVE: Vital Signs: Temperature 98.3 degrees, pulse 79, respirations 14, blood pressure 150/88. CVP: Less than 6 cm. HEENT: Right facial abscess is going down, improving. Still has some tearing irritation in the right eye. Lungs: Clear in all lung houser. Cardiovascular: Regular rhythm and rate, without murmur or S3. Abdomen: Soft. Skin: Warm and dry. Vital Signs: Remains afebrile, pulse 79, respirations 14, blood pressure 150/88. ASSESSMENT AND PLAN: 1. Streptococcal infection of the face involving soft tissue. Also streptococcal eye infection. Continue Rocephin. Continue her eye drops. Appears to be improving. 2. Depression. 3. Hypertension. 4. Morbid obesity. 5. Complains of constipation. She is on Effexor right now. She is taking the oxycodone 5 mg q.4 hours p.r.n. pain. I think we need to probably change that tramadol, as she is seems to be very anxious as well. She is on alprazolam 0.25 q.8 at home. She was taking hydrocodone q.6 hours p.r.n. pain, so I guess I should leave that alone. I am tempted to go up on her Effexor. She is on 75 mg a day. We will see if we can go up to 150 daily to see if that will help her. cc: Tad Dykes MD
[2016-09-24] MEDS: ROCEPHIN 2 GM/NS 2 GM/50 ML IVPB IV SCH (14:28)
[2016-09-24] MEDS: LOVENOX SUBQ SCH (17:50)
[2016-09-24] MEDS: DULCOLAX PR SCH (22:26)
[2016-09-25] MEDS: DILAUDID IV PRN ×3 (00:20→10:03)
[2016-09-25] MEDS: PERCOCET-5 PO PRN ×3 (03:06→12:54)
[2016-09-25] MEDS: GENTAMICIN 0.3% OPH DROPS RIGHT EYE SCH ×2 (03:06→07:58)
[2016-09-25] MEDS: APRESOLINE PO SCH ×2 (05:55→12:55)
[2016-09-25] MEDS: PROTONIX PO SCH ×2 (05:55→06:40)
[2016-09-25] MEDS: PRILOSEC PO SCH ×2 (07:54→10:01)
[2016-09-25] MEDS: EFFEXOR XR PO SCH ×2 (07:55→10:02)
[2016-09-25] MEDS: COLACE PO SCH ×2 (07:56→10:01)
[2016-09-25] MEDS: PRINIVIL PO SCH ×2 (07:56→10:01)
[2016-09-25] MEDS: OXY IR PO SCH ×3 (07:56→12:55)
[2016-09-25] MEDS: LOPRESSOR PO SCH ×2 (07:57→10:02)
[2016-09-25] MEDS: ZYLOPRIM PO SCH ×2 (07:57→10:01)
[2016-09-25] MEDS: PERIDEX MT SCH ×2 (07:58→10:01)
[2016-09-25] MEDS: CLARITIN PO SCH (07:59)
[2016-09-25] MEDS: MIRALAX PO SCH (10:02)
--- NOTE | 2016-09-25 10:39 | PROGRESS NOTE ---
DATE: 09/25/2016 PRESENT ILLNESS: The patient has a streptococcal infection of her face. The infection was debrided by Dr. Licea, and it appears to be doing well. She also has an infection of the right eye. It appears that it might be getting better also. MEDICATIONS: The patient is getting Rocephin intravenously, and she is having gentamicin eye drops installed every 6 hours. PHYSICAL EXAMINATION: Vital Signs: Temperature is 98.5 degrees, pulse 76, respirations 18, blood pressure 144/79. General: This is a somewhat ill-appearing middle-aged female. HEENT: Her face is much less swollen, and it is less tender. Today she was able to open her eye the widest that it has been opened since she got sick, and she also was able to see better with the eye and did not have as much pain when she looked into the light. Lungs: Clear to auscultation. Cardiovascular: Regular heart rate. Abdomen: Soft and nontender. LABORATORY AND X-RAY: There is no new lab today and no new x-ray today. ASSESSMENT AND PLAN: Our plan now is to send the patient home. I have electronically gotten prescriptions for penicillin VK 500 mg every 8 hours for 2 weeks and gentamicin eye drops 2 drops in the right eye every 6 hours for 2 weeks. Also, the dialysis social worker is going to make an appointment for the patient to see an rda as soon as possible after discharge. I plan to see the patient in my office in 2 weeks. COMORBIDITIES: The patient's comorbidity is that she does get recurrent skin infections. I have discussed with her ways of trying to prevent this from happening, namely showering in instead of bathing and use a more bacteriocidal soap, such as Dial, rather than a more creamy soap, such as Dove. Also, I told the patient that she should stop scratching at any lesions that she has. Also, I told her for the infections that she gets in intertriginous areas that it would help if she lost weight, and this would help prevent them. As mentioned above, I will be seeing the patient in my office 2 weeks after discharge. cc: Erik Davis MD
[2016-09-25] MEDS: NICODERM PATCH TD SCH (12:13)
[2016-09-25] MEDS: XANAX PO PRN (12:13)
[2016-09-25 13:30] VITALS: BP 141/80
--- NOTE | 2016-09-25 14:22 | DISCHARGE SUMMARY ---
ADMISSION DATE: 09/12/2016 DISCHARGE DATE: 09/25/2016 HISTORY OF PRESENT ILLNESS: This is a 45-year-old who was admitted on 09/12/2016 and discharged on 09/25/2016. She has a history of frequent abscesses, skin abscesses, in the past that have been positive for MRSA, frequent I and D of these abscesses. She states that most of the time she drains her own abscesses at home and then points out the underarm, under her right arm, and bilateral groin areas. She does not have anyone she goes to, no primary care physician she sees regularly, although she is supposed to see MADELINE Chowdhury. She presented to the emergency room. She had a CT scan foam on the sinuses on 09/10/2016 that showed superficial soft tissue cellulitis of the right cheek, which extended to the periorbital area, presumably from dental origin, right maxillary tooth abscess. She was sent home on clindamycin. The patient states that she took it as ordered, but the swelling and pain and the hardness and the abscess in the face became much worse, and she presented once more. White blood cell count went from 9000 to 13,000. A couple of days she had a fever of 99 degrees. Right eye was swollen and nearly swollen shut. She was admitted. Dr. Davis was consulted. REVIEW OF OTHER PAST MEDICAL HISTORY: 1. She is clinically blind in the left eye. She only sees shadows, but unsure of the etiology. 2. She has had suicidal ideations in the past, back in October. 3. History of migraine headaches. 4. Fluid retention. 5. Asthma with COPD. 6. Gastroesophageal reflux disease. 7. Morbid obesity. 8. Hypertension. 9. 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 10. History of MRSA and numerous abscesses in her skin. PAST SURGICAL HISTORY: Bilateral tubal ligation; multiple incisions and drainages in her breast, her left hand, her left elbow, and gluteus quincy. HOSPITAL COURSE: She was put on antibiotics, and the right skin abscess over the right maxillary sinus had an I and D. She has had multiple abscesses with methicillin-resistant Staphylococcus aureus. Blood pressures were managed and followed. History of gout, aware. Her breathing status was good. Dr. Licea was consulted on 09/14/2016, and he drained the right facial abscess. It continued to drain and the swelling went down, and it was felt that she did have some conjunctivitis too in the right eye and she was getting drops. The drops were changed from Cipro to, I believe, gentamicin drops. There is still some irritation in that eye, but I felt she could go home on 09/25/2016. She is going follow up with an sql etl developer. Continue the eye drops. He has given her p.o. antibiotics and continue the drops. We are going to send her with a prescription for Pen-Vee K 500 mg every 8 hours for 2 weeks and gentamicin eye drops 2 drops to each eye every 6 hours for 2 weeks and make an appointment for her to see an sql etl developer in followup. cc: Tad Dykes MD
--- NOTE | 2016-09-28 07:56 | EKG Report ---
Test Performed on : 09/25/2016 06:19:07 AM Test Reason : No Order in [employer] Blood Pressure : / mmHG Vent. Rate : 080 BPM Atrial Rate : 080 BPM P-R Int : 180 ms QRS Dur : 080 ms QT Int : 400 ms P-R-T Axes : 061 028 013 degrees QTc Int : 461 ms Normal sinus rhythm. Right atrial enlargement Minimal voltage criteria for LVH, may be normal variant Nonspecific ST and T wave abnormality Prolonged QT Abnormal ECG When compared with ECG of 30-OCT-2015 21:43, No significant change was found Confirmed by Shar GENAO, Jose Rosa ([id number]) on 09/29/2016 2:13:53 PM
== END 2016-09-25 14:20 | disposition home health service (06) ==
LOC: ED 10:10 → 4N 14:44 → SUATTDRO 14:44 → 4N 09-13 18:02
PROVIDERS: ATTEND Emergency Medicine